=== PATIENT | female | born 1960 | race Caucasian/White ===

== ENCOUNTER 2017-06-01 16:50 | Inpatient (IN) | payer MEDICAID ==
--- NOTE | 2017-06-01 16:50 | EDPHY ---
HPI/HX/ROS/PE/MDM Narrative: CHIEF COMPLAINT: Chest pain HPI: The patient is a 56 y/o female with a history of chronic narcotics use, seizure, and cognitive impairment arriving via EMS for chest pain and hypoxia onset 7:30 AM, 10 hours ago. Around midnight she began experiencing chest pain. Her partner found her lethargic this afternoon and helped her into bed. her partner took her spO2 and found it to be in the 70s. Her partner began giving her oxygen prescribed to her partner. Her chest pain is described as "sharp" and worse with inspiration and movement. REVIEW OF SYSTEMS: Aside from elements discussed in the HPI, a comprehensive 10-point review of systems was reviewed and is negative. PMH: RA, cognitive impairment, chronic narcotics use, seizures, cholecystectomy Prior medical records reviewed including ED Provider Report for 03/20/15 and 03/29 visits SOCIAL HISTORY: Lives in [place], self-employed, medicaid patient PHYSICAL EXAM: General:Patient is sleepy and oriented to year, in no acute distress. ENT:Eyes are normal to inspection. ENT inspection normal. Neck: Normal inspection. Full range of motion. Respiratory:No respiratory distress. Breath sounds normal bilaterally. Cardiovascular: Tachycardic sinus rhythm. Strong peripheral pulses. Normal cap refill. Abdomen:The abdomen is nontender to palpation. There are no peritoneal signs. There are normal bowel sounds. Back: Normal to inspection. No tenderness to palpation. Skin: Normal color. No rash. Warm and dry. Extremities: Normal appearance. Full range of motion. Neuro: Oriented to year. Normal motor function. Normal sensory function. ED Course: EKG was ordered and interpreted by myself. Sinus tachycardia. Please see [employer] system for official reading Study: CT of the chest Indication: Chest pain Results: CT scan of the chest was obtained. The results of the study are: pleural effusion without PE The study was read by the radiologist, Dr. Busby. I viewed the images myself on the PACS system. 1815: I spoke to Dr. Liu, cardiology, regarding this patient. He agree to consult. I will admit to the hospitalist service for admission. 1821: I spoke to the hospitalist service regarding admission for this patient. Dr. Salinas will admit. I spent a total of 45 minutes of critical care time including but not limited to obtaining history, performing a physical exam, ordering interventions and the bedside monitoring of those interventions, collecting and interpreting tests and discussion with consultants but not including time spent performing procedures. - Data Points Imaging Results: Imaging Impressions Chest X-Ray 06/01/17 17:03 Impression: Findings suggesting underlying bronchitis. Possible early infiltrate in the right middle lobe. Chest/Thorax CTA 06/01/17 17:35 Impression: 1. No evidence of thrombopulmonary embolic disease. 2. Possible bronchitis and early pneumonia in the right middle lobe and right lower lobe. Small right pleural effusion. Results called and discussed with Amanuel Anthony MD on 06/01/2017, 18:10. Laboratory Results: Laboratory Results 06/01/17 16:50 06/01/17 16:50 06/01/17 06/01/17 06/01/17 16:50 16:50 16:50 WBC 8.35 10^3/uL 10^3/uL (3.80-9.50) RBC 4.54 10^6/uL 10^6/uL (4.18-5.33) Hgb 14.9 g/dL g/dL (12.6-16.3) Hct 43.8 % % (38.0-47.0) MCV 96.5 fL fL (81.5-99.8) MCH 32.8 pg pg (27.9-34.1) MCHC 34.0 g/dL g/dL (32.4-36.7) RDW 13.2 % % (11.5-15.2) Plt Count 215 10^3/uL 10^3/uL (150-400) MPV 9.9 fL fL (8.7-11.7) Neut % (Auto) 84.9 % H % (39.3-74.2) Lymph % (Auto) 6.2 % L % (15.0-45.0) [place] % (Auto) 8.4 % % (4.5-13.0) Eos % (Auto) 0.0 % L % (0.6-7.6) Baso % (Auto) 0.1 % L % (0.3-1.7) Nucleat RBC Rel Count 0.0 % % (0.0-0.2) Absolute Neuts (auto) 7.09 10^3/uL H 10^3/uL (1.70-6.50) Absolute Lymphs (auto) 0.52 10^3/uL L 10^3/uL (1.00-3.00) Absolute Monos (auto) 0.70 10^3/uL 10^3/uL (0.30-0.80) Absolute Eos (auto) 0.00 10^3/uL L 10^3/uL (0.03-0.40) Absolute Basos (auto) 0.01 10^3/uL L 10^3/uL (0.02-0.10) Absolute Nucleated RBC 0.00 10^3/uL 10^3/uL (0-0.01) Immature Gran % 0.4 % % (0.0-1.1) Immature Gran # 0.03 10^3/uL 10^3/uL (0.00-0.10) D-Dimer 1.38 ug/mLFEU H ug/mLFEU (0.00-0.50) Sodium 138 mEq/L mEq/L (134-144) Potassium 5.0 mEq/L mEq/L (3.5-5.2) Chloride 96 mEq/L L mEq/L (97-110) Carbon Dioxide 33 mEq/l H mEq/l (22-31) Anion Gap 9 mEq/L mEq/L (8-16) BUN 20 mg/dL mg/dL (7-23) Creatinine 0.8 mg/dL mg/dL (0.6-1.0) Estimated GFR > 60 Glucose 146 mg/dL H mg/dL (70-100) Calcium 9.3 mg/dL mg/dL (8.5-10.4) Troponin I 1.570 ng/mL H ng/mL (0.000-0.034) Medications Given: Discontinued Medications Nitroglycerin (Nitro-Bid 2%) 0.5 inch TP EDNOW ONE Stop: 06/01/17 18:24 Last Admin: 06/01/17 18:37 Dose: 0.5 inch General Initial Vital Signs: Initial Vital Signs Temperature (C) 37.1 C 06/01/17 17:00 Heart Rate 116 H 06/01/17 17:00 Respiratory Rate 20 06/01/17 17:00 Blood Pressure 144/91 H 06/01/17 17:00 O2 Sat (%) 82 L 06/01/17 17:00 O2 Delivery Mode Nasal Cannula O2 (L/minute) 4 Allergies/Adverse Reactions: NSAIDS (Non-Steroidal Anti-Inflamma Allergy (Mild, Verified 12/31/14 11:44) GI discomfort amoxicillin Allergy (Verified 03/18/15 11:56) Home Medications: Medication Instructions Recorded Gabapentin 06/01/17 HYDROmorphone 06/01/17 Risperidone 06/01/17 Venlafaxine 25MG (*) 06/01/17 Departure - Departure Disposition: To OP Cath/Surgery Clinical Impression: Non-STEMI (non-ST elevated myocardial infarction) Condition: Fair Report Scribed for: Amanuel Anthony Report Scribed by: Sushma Matamoros Date of Report: 06/01/17 Time of Report: 16:44 Physician Review and Approval Statement: Portions of this note were transcribed by an ED scribe. I personally performed the history, physical exam, and medical decision making; and confirm the accuracy of the information in the transcribed note.
--- NOTE | 2017-06-01 17:02 | CPEKG ---
Heart Rate: 113 RR Interval: 531 P-R Interval: 160 QRSD Interval: 72 QT Interval: 312 QTC Interval: 428 P Rud[place]: 80 QRS Rudolph: 84 T Wave Rudolph: 56 EKG Severity - ABNORMAL ECG - EKG Impression: SINUS TACHYCARDIA EKG Impression: CONSIDER ANTEROSEPTAL INFARCT Electronically Signed By: Amanuel Anthony 02-Jun-2017 21:53:18
[2017-06-01 17:16] LABS: PLATELET COUNT 215 10^3/uL (150-400)
[2017-06-01] MEDS ORDERED: IOPAMIDOL (ISOVUE 370) 100 ML BTL IV ONE (17:37)
--- NOTE | 2017-06-01 18:14 | CPEKG ---
Heart Rate: 106 RR Interval: 566 P-R Interval: 156 QRSD Interval: 74 QT Interval: 336 QTC Interval: 447 P [place]: 85 QRS [place]: 85 T Wave [place]: 60 EKG Severity - ABNORMAL ECG - EKG Impression: SINUS TACHYCARDIA EKG Impression: CONSIDER ANTEROSEPTAL INFARCT Electronically Signed By: Amanuel Anthony 02-Jun-2017 21:53:10
[2017-06-01] MEDS ORDERED: NITROGLYCERIN 2% 1 GM PACKET TP ONE (18:23)
[2017-06-01] MEDS ORDERED: ONDANSETRON 4 MG/2 ML VIAL IVP PRN (18:43)
[2017-06-01] MEDS ORDERED: ONDANSETRON DISINTEGRATING 4 MG TAB PO PRN (18:43)
[2017-06-01] MEDS ORDERED: ACETAMINOPHEN 325 MG TAB PO PRN (18:43)
--- NOTE | 2017-06-01 18:52 | PDGENHP ---
History and Physical - Chief Complaint chest pain - History of Present Illness 56 yo female with h/o tobacco use, chronic pain and continuous opioid dependence presents to ED with CP and SOB. She developed chest pressure yesterday around 5 pm while resting in bed. This was associated with shortness of breath and pleuritic pain. She also had nausea and diaphoresis. She took some Oxycodone, which she takes chronically, but is unable to describe to me where she has chronic pain or how much oxycodone she takes. She denies other drug use. She did not seek care at the onset of her chest pain and says she had chest pain all through the night. Today, a friend came by and became worried about her condition and EMS was called. She is overall a vague historian. En route, she received a full dose Aspirin. In the ED, a CTPA was negative for PE. Her EKG shows Q waves in V1 and V2, with subtle ST elevations in V2. Troponin was elevated at 1.5. Cardiology is consulted and she will proceed directly to the supervisor laboratory. History Information - Allergies/Home Medication List Allergies/Adverse Reactions: NSAIDS (Non-Steroidal Anti-Inflamma Allergy (Mild, Verified 12/31/14 11:44) GI discomfort amoxicillin Allergy (Verified 03/18/15 11:56) Home Medications: Gabapentin [Neurontin 300 MG (*)] 300 mg PO BID 06/01/17 [Last Taken 05/31/17] HYDROmorphone HCL [Dilaudid 2 mg (*)] 2 mg PO 06/01/17 [Last Taken Unknown] Venlafaxine Xr [Effexor Xr] 150 mg PO DAILY 06/01/17 [Last Taken 05/31/17] risperiDONE [RisperDAL] 1 mg PO HS 06/01/17 [Last Taken 05/31/17] I have personally reviewed and updated: family history, medical history, social history, surgical history - Past Medical History Additional medical history: chronic pain secondary to DDD. chronic continuous opioid dependence. anxiety - Surgical History Reports: cholecystectomy, hernia repair Additional surgical history: carpal tunnel release - Family History Positive for: non-pertinent Additional family history: Denies family h/o CAD - Social History Smoking Status: Current every day smoker Alcohol Use: None Drug Use: None Additional social history: Lives independently Review of Systems Review of Systems: ROS: 10pt was reviewed & negative except for what was stated in HPI & below Physical Exam Physical Exam: Temp Pulse Resp BP Pulse Ox 37.1 C 106 H 16 149/100 H 96 06/01/17 17:00 06/01/17 17:57 06/01/17 17:57 06/01/17 17:57 06/01/17 17:57 Constitutional: no apparent distress Eyes: PERRL Ears, Nose, Mouth, Throat: moist mucous membranes Cardiovascular: regular rate and rhythym, no murmur, rub, or gallop Respiratory: no respiratory distress, clear to auscultation Gastrointestinal: normoactive bowel sounds, soft, non-tender abdomen Skin: warm Musculoskeletal: full muscle strength Neurologic: AAOx3 Psychiatric: anxious, poor memory Lab Data & Imaging Review 06/01/17 16:50 06/01/17 16:50 WBC 8.35 10^3/uL (3.80-9.50) 06/01/17 16:50 RBC 4.54 10^6/uL (4.18-5.33) 06/01/17 16:50 Hgb 14.9 g/dL (12.6-16.3) 06/01/17 16:50 Hct 43.8 % (38.0-47.0) 06/01/17 16:50 MCV 96.5 fL (81.5-99.8) 06/01/17 16:50 MCH 32.8 pg (27.9-34.1) 06/01/17 16:50 MCHC 34.0 g/dL (32.4-36.7) 06/01/17 16:50 RDW 13.2 % (11.5-15.2) 06/01/17 16:50 Plt Count 215 10^3/uL (150-400) 06/01/17 16:50 MPV 9.9 fL (8.7-11.7) 06/01/17 16:50 Neut % (Auto) 84.9 % (39.3-74.2) H 06/01/17 16:50 Lymph % (Auto) 6.2 % (15.0-45.0) L 06/01/17 16:50 [place] % (Auto) 8.4 % (4.5-13.0) 06/01/17 16:50 Eos % (Auto) 0.0 % (0.6-7.6) L 06/01/17 16:50 Baso % (Auto) 0.1 % (0.3-1.7) L 06/01/17 16:50 Nucleat RBC Rel Count 0.0 % (0.0-0.2) 06/01/17 16:50 Absolute Neuts (auto) 7.09 10^3/uL (1.70-6.50) H 06/01/17 16:50 Absolute Lymphs (auto) 0.52 10^3/uL (1.00-3.00) L 06/01/17 16:50 Absolute Monos (auto) 0.70 10^3/uL (0.30-0.80) 06/01/17 16:50 Absolute Eos (auto) 0.00 10^3/uL (0.03-0.40) L 06/01/17 16:50 Absolute Basos (auto) 0.01 10^3/uL (0.02-0.10) L 06/01/17 16:50 Absolute Nucleated RBC 0.00 10^3/uL (0-0.01) 06/01/17 16:50 Immature Gran % 0.4 % (0.0-1.1) 06/01/17 16:50 Immature Gran # 0.03 10^3/uL (0.00-0.10) 06/01/17 16:50 D-Dimer 1.38 ug/mLFEU (0.00-0.50) H 06/01/17 16:50 Sodium 138 mEq/L (134-144) 06/01/17 16:50 Potassium 5.0 mEq/L (3.5-5.2) 06/01/17 16:50 Chloride 96 mEq/L (97-110) L 06/01/17 16:50 Carbon Dioxide 33 mEq/l (22-31) H 06/01/17 16:50 Anion Gap 9 mEq/L (8-16) 06/01/17 16:50 BUN 20 mg/dL (7-23) 06/01/17 16:50 Creatinine 0.8 mg/dL (0.6-1.0) 06/01/17 16:50 Estimated GFR > 60 06/01/17 16:50 Glucose 146 mg/dL (70-100) H 06/01/17 16:50 Calcium 9.3 mg/dL (8.5-10.4) 06/01/17 16:50 Troponin I 1.570 ng/mL (0.000-0.034) H 06/01/17 16:50 Visualized and Interpreted Chest x-ray results: Yes Chest X-Ray results: no infiltrate Visualized and Interpreted EKG results: Yes EKG additional interpertation: Q waves V1-V2, subtle ST elevation V2 Assessment & Plan Assessment: Takotsubo cardiomyopathy - Presented with >12 hrs of chest pain and troponin of 1.5. EKG with Q waves in V1,V2 and subtle ST elevation V2, though not significantly changed from prior. Received ASA en route. Went straight to supervisor laboratory, which revealed EF 30% and classic findings for takotsubo, cors clean. She does not appear to be in acute HF. -cont daily ASA -add low dose coreg -check BNP, may benefit from low dose diuretic therapy -echo in am -check lipid status in am -tox screen pending Elevated troponin - likely demand ischemia in setting of takotsubo's cardiomyopathy -trend to peak Chronic pain with continuous opioid dependence - Cont home medication regimen once med rec completed. ?RML infiltrate - no fever, white count or cough -check PCT. If elevated, will treat with Ceftriaxone/Azithro Full code DVT PPLX - low risk, SCD's Dispo - admit to inpt, anticipate >48 hrs hospitalization for ongoing workup and management of chest pain and elevated troponin
[2017-06-01] MEDS ORDERED: METOPROLOL TARTRATE 25 MG TAB PO SCH (19:00)
[2017-06-01] MEDS ORDERED: ATORVASTATIN CALCIUM 40 MG TAB PO SCH ×2 (19:00→21:00)
[2017-06-01] MEDS ORDERED: LIDOCAINE 1% 300 MG/30 ML SDV ONE (19:05)
[2017-06-01] MEDS ORDERED: fentaNYL 100 MCG/2 ML INJ ONE (19:06)
[2017-06-01] MEDS ORDERED: IOPAMIDOL (ISOVUE-370) 150 ML BTL IV ONE (19:06)
[2017-06-01] MEDS ORDERED: MIDAZOLAM 2 MG/2 ML VIAL ONE (19:06)
[2017-06-01] MEDS ORDERED: NITROGLYCERIN 0.4 MG BTL SL PRN (20:04)
[2017-06-01] MEDS ORDERED: ATROPINE SULFATE 1 MG/10 ML SYR IVP PRN (20:04)
--- NOTE | 2017-06-01 20:35 | GCON ---
[f rep st] CONSULTATION CARDIOLOGY CONSULTATION DATE OF CONSULTATION: 06/01/2017 INDICATION FOR CONSULTATION: Ongoing 8/10 substernal chest pressure with positive troponin with normal ECG and negative CTA for pulmonary emboli. HISTORY OF PRESENT ILLNESS: The patient is a pleasant 56-year-old female who denies any past medical history, who presents to the emergency department today with a history of over 18 hours of substernal chest discomfort. She states she awoke around midnight last night with 8-1/2 out of 10 substernal squeezing chest tightness and pressure that was nonradiating associated with shortness of breath and nausea. She states these symptoms have waxed and waned all day but have become fairly constant, prompting her to seek medical attention at [facility] Emergency Department. Upon presentation, she was found to be tachycardic at 106 beats per minute. Her D-dimer was elevated. She did undergo a CTA of the chest for possible pulmonary emboli. There was no evidence of thrombo-pulmonary emboli. There were findings suggestive of possible bronchitis versus early pneumonia in the right middle lobe and lower lobe, and there was a small right pleural effusion. Currently, at the time of my exam, she is in mild to moderate distress. She is unable to get comfortable. She is describing ongoing 8/10 substernal chest pain. She is hemodynamically stable and responds appropriately to questions, although occasionally she responds with incorrect answers, particularly when asked her age. PAST MEDICAL HISTORY: None. MEDICATIONS ON ADMISSION: Include: 1. Hydromorphone 4 mg 1 tablet daily as needed. 2. Gabapentin 300 mg p.o. t.i.d. 3. Risperdal 4 mg at bedtime. 4. Venlafaxine 150 mg 2 tablets p.o. at bedtime. ALLERGIES TO MEDICATIONS: NSAIDs and amoxicillin. FAMILY HISTORY: No family history of premature coronary artery disease. SOCIAL HISTORY: She is single. She has recently moved from the [facility] to live with a friend. She has 2 children ages 14 and 18. She is a smoker. She has smoked a half pack a day since her early teenage years. She denies any history of illicit drug use or alcohol use. PHYSICAL EXAMINATION: VITAL SIGNS: Blood pressure 149/100, respiratory rate of 16, heart rate of 106, oxygen saturation 96% on 4 L nasal cannula. GENERAL: She is awake, alert, oriented, appropriate, in no apparent distress. NECK: There is no evidence of JVD or carotid bruit. LUNGS: Clear to auscultation bilaterally. ABDOMEN: Soft, nontender, nondistended. She has a 2+ right femoral pulse. EXTREMITIES: There is no evidence of cyanosis, clubbing or edema. DATA: Lab results demonstrate white blood cell count of 8.35, hemoglobin 14.9, hematocrit 43.8, platelets of 215. D-dimer was positive at 1.38. Sodium 138, potassium 5.0, chloride 96, bicarb 33, BUN 20, creatinine 0.8. Troponin 1.570. Glucose 146. ECG demonstrates sinus tachycardia. IMPRESSION: Zba-PA-[id number]-elevation myocardial infarction with ongoing 8/10 substernal chest pain. I have recommend diagnostic left heart catheterization. Patient is agreeable to pursue. Risks and benefits have been discussed in detail. She is agreeable to pursue. No contraindication to dual antiplatelet therapy. PLAN: Patient will be taken directly to the senior cytogenetics laboratory director. Further workup pending from there. 40 minutes spent coordinating care /[id number]/MODL MTDD
[2017-06-01] MEDS: CARVEDILOL 3.125 MG TAB PO SCH (20:40)
--- NOTE | 2017-06-01 21:40 | CPIP ---
[f rep st] INVASIVE CARDIAC PROCEDURE DATE OF PROCEDURE: 06/01/2017 REPORT TITLE: Cardiology Procedure Note INDICATION FOR PROCEDURE: Concern for uam-DI-bjpvxlw elevation myocardial infarction with a 56-year- old female with ongoing substernal chest pressure, with positive troponin of 1.58. PROCEDURE: After informed consent was obtained, the patient was brought to the cardiac catheterizati on lab, where she was prepped and draped in a sterile fashion. Using 1% lidocaine, the right groin w as anesthetized with 1% lidocaine. Using the modified Seldinger technique, a 6-Swiss catheter was p laced in the right common femoral artery without complications. A JL4 catheter was used to take imag es of the left coronary anatomy in multiple projections. The JL4 catheter was exchanged over a guide wire for a JR4 catheter. JR4 catheter was used to cannulate the right coronary artery. Images of th e right coronary anatomy were obtained in multiple projections. JR4 catheter was exchanged over a gu idewire for angled pigtail catheter. Angled pigtail catheter was used to cross the aortic valve. Le ft ventriculogram was performed. LVEDP was assessed. Aortic valve gradient was assessed on pull-aquiles k. Angled pigtail catheter was exchanged over a guidewire. Angiography of the right common femoral artery site demonstrates appropriate placement below the inguinal ligament. Appropriate for closure device. FINDINGS: 1. Left main normal size and caliber. It bifurcates into the left anterior descending and left circ umflex coronary arteries. There is no evidence of coronary disease within the left main. 2. The left anterior descending artery gives rise to a moderate-sized first diagonal branch. The LA D is free of coronary artery disease. 3. Left circumflex artery is a dominant vessel. There is some tortuosity to the first obtuse margin al branch. There is no evidence of coronary disease within the circumflex system or the obtuse yeny nal branch. 4. Right coronary artery is a small, nondominant vessel with no evidence of coronary disease. HEMODYNAMICS: LVEF 30% to 35% with classic appearance of basal segment hyperkinesis. The remainder of the ventricle, except of the apical cap, is hypodynamic, consistent with a takotsubo or stress-ind uced cardiomyopathy. LVEDP is elevated at 23 mmHg. Aortic valve gradient: none. CONCLUSION: 1. Normal coronary arteries. 2. Stress-induced/takotsubo-induced cardiomyopathy with left ventricular ejection fraction of 30% to 35%. PLAN: 1. Patient will be admitted to the patient care unit. 2. Will begin to initiate heart failure therapy with low-dose Coreg at 3.125 mg p.o. b.i.d. /[id number]/MODL
[2017-06-01] MEDS ORDERED: risperiDONE 1 MG TAB PO SCH (23:15)
[2017-06-02 04:08] LABS: PLATELET COUNT 195 10^3/uL (150-400)
[2017-06-02] MEDS: CARVEDILOL 3.125 MG TAB PO SCH ×2 (07:38→17:03)
[2017-06-02] MEDS: GABAPENTIN 300 MG CAP PO SCH ×2 (07:39→20:01)
[2017-06-02] MEDS: ASPIRIN EC 81 MG TAB PO SCH (07:39)
--- NOTE | 2017-06-02 08:55 | ECHO ---
[email or web address] [address] Main: [phone] Fax: Transthoracic Echocardiogram Name: AMADA HUERTA MR#: [id number] Study Date: 06/02/2017 Study Time: 08:04 AM Date of : 1960 Age: 56 year(s) Height: 167.6 cm (66 in.) Weight: 56.7 kg (125 lb.) BSA: 1.64 m2 Gender: Female Examination: Echo Indication: Shortness of breath, Chest Pain Image Quality: Contrast: Requested by: Fanta Salinas BP: 143 mmHg/99 mmHg Heart Rate: Rhythm: Normal sinus rhythm Indication: Shortness of breath, Chest Pain Procedure Staff Mechanical Assembly Technician: Dontrell Pederson Reading Physician: Yuri Chowdhury Requesting Provider: Conclusions: Normal size left ventricle. Moderately to severely reduced systolic function. EF is 26 %. The left venticular wall motion is consistent with Takotsubo cardiomyopathy. There is mid inferoseptal, apical to mid anterolateral hypokinesis. The mitral valve is normal in appearance. Trivial mitral valve regurgitation. Aortic valve is not well visualized. There is no aortic valve regurgitation. No aortic valve stenosis is present. No old studies for comparison. Measurements: Chambers Valvular Assessment AV/MV Valvular Assessment TV/PV Normal Normal Normal Name Value Range Name Value Range Name Value Range Ao Chrystal (MM): 2.6 cm (2.2 cm-3.7 AV Vmax: 0.96 m/s (1 m/s-1.7 TR Vmax: 1.59 mm/s ( - ) cm) m/s) TR PGmax: 10 mmHg ( - ) IVSd (2D): 0.6 cm (0.6 cm-1.1 AV maxP mmHg ( - ) syst. PAP: 15 mmHg ( - ) cm) LVOT Vmax: 0.74 m/s (0.7 m/s-1.1 PV Vmax: 0.68 m/s (0.6 m/s-0.9 LVDd (2D): 4.0 cm (3.9 cm-5.3 m/s) m/s) cm) MV E Vmax: 0.83 m/s ( - ) PV PGmax: 2 mmHg ( - ) LVDs (2D): 3.1 cm (2.1 cm-4 MV A Vmax: 0.69 m/s ( - ) cm) MV E/A: 1.20 ( - ) LVPWd (2D): 0.7 cm ( - ) LVEF (BP): 26 % (>=55 %) Continued Measurements: Chambers Valvular Assessment AV/MV Valvular Assessment TV/PV Patient: AMADA HUERTA Study Date: 06/02/2017 Page 1 of 2 08:04 AM Name Value Name Value Name Value LADs Lon.1 cm MV E/E' Septal: 10.70 CVP (est.): 5 mmHg LA Area: 12.4 cm2 MV E/E' Lateral: 11.60 LA Volume: 24 ml LA Volume Index: 14.6 ml/m2 Findings: Left Ventricle: Normal size left ventricle. Moderately to severely reduced systolic function. EF is 26 %. The left venticular wall motion is consistent with Takotsubo cardiomyopathy. There is mid inferoseptal, apical to mid anterolateral hypokinesis.Diastolic dysfunction is present. . Right Ventricle: Normal size right ventricle. Normal RV function. Left Atrium: The left atrium is normal in size. Right Atrium: The right atrium is normal in size. Mitral Valve: The mitral valve is normal in appearance. Trivial mitral valve regurgitation. Aortic Valve: Aortic valve is not well visualized. There is no aortic valve regurgitation. No aortic valve stenosis is present. Tricuspid Valve: The tricuspid valve is normal in appearance and function. Pulmonic Valve: The pulmonic valve is normal in appearance and function. Aorta: The aorta is normal. Pericardium: No pericardial effusion. (No Signature Object) Patient: AMADA HUERTA Study Date: 06/02/2017 Page 2 of 2 08:04 AM [id number]
[2017-06-02] MEDS ORDERED: VENLAFAXINE XR 150 MG CAP PO SCH (09:00)
--- NOTE | 2017-06-02 09:46 | SOAPPROG ---
[facility] Progress Note Assessment/Plan: 1. Takotsubo CM - Pt presented with symptoms of chest pain. Her troponin was mildly elevated. She was taken to the cardiac catheterization laboratory on 06/01/17 and found to have a takotsubo CM with no significant CAD. Pt was started on coreg. Echocardiogram on 06/02 demonstrates an EF of 25%. She denies symptoms of CHF and appears euvolemic at this time. --> Continue coreg --> Start lisinopril 5 mg daily. --> Consider repeat limited echocardigram in the am. --> Would hold Risperidone 2. Hyperlipidemia - Pts LDL is 50 with diet and exercise 3. HTN - BP is borderline. Will start lisinopril as noted above. Subjective: + respirophasic chest pain No orthopnea or PND limited ambulation Objective: Vital Signs Temp Pulse Resp BP Pulse Ox 36.7 C 94 18 143/99 H 90 L 06/02/17 08:00 06/02/17 08:00 06/02/17 08:00 06/02/17 08:00 06/02/17 08:00 Laboratory Results 06/02/17 03:50 06/02/17 03:50 06/01/17 06/02/17 06/03/17 05:59 05:59 05:59 Intake Total 650 Output Total 1850 Balance -1200 Physical Exam - Physical Exam General Appearance: other (sleepy but responsive to commands) Respiratory: lungs clear Cardiac/Chest: regular rate, rhythm, systolic murmur Abdomen: normal bowel sounds, non-tender, soft Extremities: other (2 DP B), No pedal edema Neuro/Psych: other (sleepy) ICD10 Worksheet Patient Problems: Problems Problem Status Onset Abdominal pain Acute Non-STEMI (non-ST elevated myocardial infarction) Acute
[2017-06-02] MEDS ORDERED: LORazepam 1 MG TAB PO PRN (11:50)
[2017-06-02] MEDS: HYDROmorphONE/DILAUDID 4 MG TAB PO PRN (13:14)
--- NOTE | 2017-06-02 13:57 | ASMTCMCOM ---
CM Note CM Note Notes: Patient admitted with chest pain, found to have Takotsubo CM. Cardiology has seen and is adjusting medications. She will likely discharge home tomorrow. Case Management discharge plan: home independent Date Signed: 06/02/2017 01:56 PM Electronically Signed By:Monica Florence RN
--- NOTE | 2017-06-02 14:44 | HOSPPROG ---
Hospitalist Progress Note Assessment/Plan: 56 yo with no pmh significant for heart disease is admitted with chest pain and elevated troponin. She had angiogram which revealed normal coronaries but has significantly decreased ejection fraction and needs additional midnight stay for ongoing evaluation and medical treatment for acute systolic CHF CHF, acute systolic, likely Takasubo's but patient without clear stressful event. Has been on meds that may contribute including ritalin and effexor * Continue to monitor as inpatient and adjust medications * will dc ritalin * decrease effexor to 150 mg daily * discussed with Dr. Chowdhury # Chronic pain with chronic narcotic dependence. Reviewed her meds and will continue her lorazepam and dilauded. fu with her pain doctor after dc # depression/ on effexor, may not be good for acute heart issues, will decrease dose to 150 daily. Subjective: pt new to me and chart reviewed. Continues to have chest pain Objective: Vital Signs Temp Pulse Resp BP Pulse Ox 37.0 C 94 18 142/94 H 91 L 06/02/17 12:00 06/02/17 12:00 06/02/17 12:00 06/02/17 12:00 06/02/17 12:00 Laboratory Results 06/02/17 03:50 06/02/17 03:50 06/01/17 06/02/17 06/03/17 05:59 05:59 05:59 Intake Total 650 Output Total 1850 Balance -1200 - Physical Exam Constitutional: chronically ill appearing, uncomfortable Eyes: PERRL, EOMI Ears, Nose, Mouth, Throat: moist mucous membranes Cardiovascular: regular rate and rhythym, no murmur, rub, or gallop Respiratory: no respiratory distress, no rales or rhonchi Gastrointestinal: normoactive bowel sounds, soft, non-tender abdomen Genitourinary: no bladder fullness Skin: warm, normal color Musculoskeletal: no joint effusions Neurologic: AAOx3, No facial droop Psychiatric: interacting appropriately, not anxious ICD10 Worksheet Patient Problems: Problems Problem Status Onset Abdominal pain Acute Non-STEMI (non-ST elevated myocardial infarction) Acute
--- NOTE | 2017-06-02 15:04 | PDMN ---
Medical Necessity Medical necessity: Pt meets IP criteria per MD; est los >2 mn for eval/tx of acute systolic CHF likely r/t Takotsubo's cardiomyopathy w/chest pain & elevated trop; admit for further workup & med management; per progress note & order 06/02/17
[2017-06-02] MEDS: LIDOCAINE 5% 1 EA PATCH TD SCH (19:58)
[2017-06-02] MEDS ORDERED: PATCH REMOVAL 1 EA PATCH TD SCH (21:00)
[2017-06-02] MEDS ORDERED: risperiDONE 2 MG TAB PO SCH (21:00)
[2017-06-03 08:58] VITALS: RESP 18
[2017-06-03] MEDS ORDERED: LISINOPRIL 5 MG TAB PO SCH (09:00)
[2017-06-03] MEDS ORDERED: VENLAFAXINE XR 150 MG CAP PO SCH (09:00)
[2017-06-03] MEDS ORDERED: VENLAFAXINE HCL 75 MG TAB PO SCH (09:00)
[2017-06-03] MEDS: ASPIRIN EC 81 MG TAB PO SCH (09:04)
[2017-06-03] MEDS: GABAPENTIN 300 MG CAP PO SCH (09:04)
[2017-06-03] MEDS: CARVEDILOL 3.125 MG TAB PO SCH (09:04)
[2017-06-03] MEDS: LIDOCAINE 5% 1 EA PATCH TD SCH (09:04)
[2017-06-03] MEDS: HYDROmorphONE/DILAUDID 4 MG TAB PO PRN (09:12)
[2017-06-03] MEDS ORDERED: HYDROmorphONE/DILAUDID 4 MG TAB PO PRN (11:28)
[2017-06-03] MEDS ORDERED: AZITHROMYCIN 250 MG TAB PO SCH (11:30)
[2017-06-03 12:33] VITALS: BP 97/56; PULSE 97; TEMP 98; O2SAT 93
--- NOTE | 2017-06-03 13:09 | PDCARPN ---
Cardiology Progress Note Chief Complaint: Chest Pain Assessment/Plan: Assessment: 06/03/17 12:54 Takotsubo Cardiomyopathy: EF 25%. Will plan to get outpatient Echo in one week at [facility]. Home on ASA, Coreg, and Lisinopril. Follow up in 10 days 06/20/17 at 10:00 with Siomara Vazquez TIMBER FRAMER HELPER at [facility]. Continues to complain of chest pain until she gets her pain medication. Plan: Discharge today. Echo and follow up as above. Subjective: The chest pain went away after the pain medication this morning. Reviewed/Discussed With: hospitalist, multidisciplinary team Time Spent With Patient: 15 minutes Objective: Vital Signs (8 Hrs) Temp Pulse Resp BP Pulse Ox 06/03/17 12:00 36.6 C 97 18 97/56 L 93 06/03/17 08:00 36.6 C 92 18 114/67 95 Intake/Output (24 Hrs) 06/02/17 06/03/17 06/04/17 05:59 05:59 05:59 Intake Total 650 1350 Output Total 1850 1200 Balance -1200 150 Intake: Oral (ml) 650 1350 Output: Urine (ml) 1850 1200 Bedpan 650 Toilet 1200 1200 Other: Weight 56.699 kg Intake Quantity Yes Sufficient Number of Stools Toilet 1 Result Diagrams: 06/02/17 03:50 06/03/17 08:50 Cardiac Labs: Cardiac Lab Results (72 Hrs) 06/02/17 06/01/17 03:50 20:00 Troponin I 1.850 H Cancelled - Physical Exam Constitutional: no apparent distress Cardiovascular: regular rate and rhythm, no murmurs, no rubs, no gallops Peripheral Pulses: 2+: dorsalis-pedis (R), dorsalis-pedis (L) Respiratory: clear to auscultate bilat, no crackles, no wheezes Skin: no rashes, warm, no edema Neurologic: AAOx3 Psychiatric: cooperative, interactive ICD10 Worksheet Patient Problems: Problems Problem Status Onset Abdominal pain Acute Non-STEMI (non-ST elevated myocardial infarction) Acute
--- NOTE | 2017-06-03 13:12 | GDS ---
[f rep st] DISCHARGE SUMMARY DIAGNOSES: 1. Probable takotsubo cardiomyopathy with diminished EF at 26%, negative angiogram for coronary sushant ry flow-limiting disease. 2. Possible bronchitis, treated with Zithromax. 3. Depression, anxiety, followed by Psychiatry. 4. Chronic back pain with chronic narcotic dependency. PROCEDURES DONE: 1. Chest and thoracic angiogram negative for pulmonary embolus, possible right middle lobe pneumonia versus bronchitis. 2. Left heart catheterization, negative for obstructive coronary artery disease, diminished EF. 3. Echocardiogram showing decreased ejection fraction of 26%, left ventricular wall motion consisten t with takotsubo cardiomyopathy. CONSULTATIONS: Cardiology, Dr. Yuri Chowdhury. HOSPITAL COURSE: The patient is a 56-year-old who is admitted with chest pain. Chest and thoracic a ngiogram was negative, and she underwent a left heart catheterization given elevated troponins. This was negative for coronary artery disease, but she did have a cardiomyopathy consistent with takotsub o cardiomyopathy and has been treated medically for this. She continues to have intermittent chest p ain that is responding to her usual pain medication she takes for her back pain. I will also treat h er for possible bronchitis with Zithromax at the time of discharge. It is unclear as to the etiology of her takotsubo cardiomyopathy. She denies any recent stresses. However, she is on Ritalin, as we ll as Effexor, which can have some heart effects. I told her to discontinue the Ritalin, and I decre ased her Effexor from 300 to 150 mg daily. She will follow up with her psychiatrist to discuss other options for depression and possibly continue her wean. DISCHARGE MEDICATIONS: Please see discharge medication form. FOLLOWUP: Followup will be with her psychiatrist. She will also follow up with [facility] with a n echocardiogram as scheduled, and she should schedule a followup appointment with her primary care maribell amor for hospital followup and to let her know of the issue she has been dealing with. Total time spent with patient on the day of discharge and coordination of care is 35 minutes. /[id number]/MODL
--- NOTE | 2017-06-03 14:10 | ASDISCHSUM ---
Discharge Information Plan Status:Home with No Needs Medically Cleared to Leave:06/02/2017 Discharge Date:06/03/2017 01:25 PM CM D/C Disposition:Home, Routine, Self-Care ADT D/C Disposition:Home, Routine, Self-Care Projected Discharge Date:06/03/2017 01:25 PM Transportation at D/C:Family Discharge Delay Reason: Follow-Up Date:06/03/2017 01:25 PM Discharge Slot: Final Diagnosis: Placement Information Patient Contact Information Contact Name:MITZINATHANBRE Relationship:Friend Address: Work Phone: City: [facility] Phone: [facility]/Zip Code: Email: Financial Information Financial Class: Primary Plan Desc:[employer] [place] IP Primary Plan Number:[id number] Secondary Plan Desc: Secondary Plan Number: Assessment Information [facility] CM Progress Note CM Note CM Note Notes: Patient admitted with chest pain, found to have Takotsubo CM. Cardiology has seen and is adjusting medications. She will likely discharge home tomorrow. Case Management discharge plan: home independent Date Signed: 06/02/2017 01:56 PM Electronically Signed By:Monica Florence RN LACE RONY Length of stay for Answers: 1 day current admission Acuity / Level of Care Answers: Was the patient admitted to hospital via the emergency department? Yes: Comorbidities - select Answers: Cerebrovascular disease all that apply Emergency dept visits in Answers: 0 last 6 months Score: 5 Date Signed: 06/03/2017 11:43 AM Electronically Signed By:Dee Dee Araujo RN Intervention Information Intervention Type:*Incorrect Registration Date of Service:06/02/2017 11:04 AM Patient Type:Inpatient Staff Member:HAKEEM Krishnan Courtney Hours: Discipline: Severity: Comment:
--- NOTE | 2017-06-09 09:01 | PQFORM ---
PHYSICIAN QUERY FORM Needs Your Response This query form is being sent to you to assure this patient record is coded properly. Please respond to the question below: AUDIO/VISUAL OPERATOR QUESTION: Dr. Miller, On your 06/02 progress note and medical necessity note, you document the patient has acute systolic CHF. It is also documented by the policy writer sales, Dr. Liu, that the patient was initiated on heart failure therapy with low-dose Coreg at 3.125 mg. Can acute systolic CHF be added to the diagnoses on the discharge summary? _x____ yes no other Thank you, IRENE Estrada HIM Coding INSTRUCTIONS FOR RESPONSE: Answer question by clicking on the "Edit Document" button. Move cursor to area below the stars. When complete, hit "Save." Click on the "Sign" button, then click "Sign" again. Type in your PIN and hit "Enter." MTDD
== END 2017-06-03 13:25 | disposition home or self-care (01) | DRG 286 ==
LOC: EDUNIT# → OBSVTOIN 18:43 → F2W 20:25
PROVIDERS: ADMIT Hospitalist; ATTEND Internal Medicine
DX: I51.81 Takotsubo syndrome (principal); I50.21 Acute systolic (congestive) heart failure; J40 Bronchitis, not specified as acute or chronic; F32.9 Major depressive disorder, single episode, unspecified; F41.9 Anxiety disorder, unspecified; G89.29 Other chronic pain; M54.9 Dorsalgia, unspecified; F11.20 Opioid dependence, uncomplicated; G40.909 Epilepsy, unspecified, not intractable, without status epilepticus; R41.89 Other symptoms and signs involving cognitive functions and awareness; M06.9 Rheumatoid arthritis, unspecified; E78.5 Hyperlipidemia, unspecified
CPT/HCPCS: 80305; C1760; J2250; J3010; Q9967

== ENCOUNTER 2017-06-26 23:10 | Observation (INO) | payer MEDICAID ==
[2017-06-26] MEDS ORDERED: NS 1,000 ML IV ONE (23:17)
--- NOTE | 2017-06-26 23:19 | CPEKG ---
Heart Rate: 77 RR Interval: 779 P-R Interval: 164 QRSD Interval: 80 QT Interval: 464 QTC Interval: 526 P [place]: 81 QRS [place]: 89 T Wave [place]: 176 EKG Severity - ABNORMAL ECG - EKG Impression: SINUS RHYTHM EKG Impression: ABNORMAL T, CONSIDER ISCHEMIA, ANT-LAT LEADS EKG Impression: PROLONGED QT INTERVAL Electronically Signed By: Tim Houston 27-Jun-2017 06:38:04
--- NOTE | 2017-06-26 23:22 | EDPHY ---
H & P Smoking Status: Current every day smoker Time Seen by Provider: 06/26/17 23:14 HPI/ROS: CHIEF COMPLAINT: Chest pain, shortness of breath, weakness HISTORY OF PRESENT ILLNESS: 56-year-old female presents to the emergency department by ambulance with intermittent chest pain and feeling weak. The patient was admitted to the hospital with takotsubo cardiomyopathy on 2016. She was discharged 2 days later. She states since she has been discharged, she has had intermittent chest pain. Today she felt "awful ". She feels extremely weak. She has pain in the left side of her chest. She feels like she is having difficulty breathing. No fevers or chills. No cough. She states that they have been changing her lisinopril dosage. No fevers or chills. No reported trauma. REVIEW OF SYSTEMS: Constitutional: No fever, no chills. Eyes: No double or blurry vision. ENT: No sore throat. Respiratory: Shortness of breath as above. No cough. Cardiac: chest pain. Gastrointestinal: No abdominal pain, vomiting or diarrhea. Genitourinary: No dysuria. Musculoskeletal: No neck or back pain. Skin: No rashes. Neurological: No headache. (Jeanne Laws) Past Medical/Surgical History: Hypertension, takotsubo cardiomyopathy with ejection fracture of 26% June 01 2017, depression, anxiety, chronic pain with narcotic dependency (Eusebia Jeanne M) Social History: Single and lives in [place] ([place]) Physical Exam: General Appearance: Alert, no distress. Blood pressure 92/56, heart rate 82, 93 % on room air Eyes: Pupils equal and round. Extraocular motions are all intact. ENT: Mouth: Mucous membranes moist. Respiratory: No wheezing, rhonchi, or rales, lungs are clear to auscultation. Cardiovascular: Regular rate and rhythm. Gastrointestinal: Abdomen is soft and nontender, no masses, no rebound or guarding, bowel sounds normal. Neurological: Alert and oriented x 3, cranial nerves II through XII grossly intact Skin: Warm and dry, no rashes. Musculoskeletal: Nontender to palpate along the cervical, thoracic or lumbar spine. Neck is supple. Extremities: Full range of motion and no peripheral edema. Psychiatric: Patient is oriented X 3, there is no agitation. (Jeanne Laws) Constitutional: Initial Vital Signs Temperature (C) 36.5 C 06/26/17 23:17 Heart Rate 78 06/26/17 23:17 Respiratory Rate 16 06/26/17 23:17 Blood Pressure 96/52 L 06/26/17 23:17 O2 Sat (%) 97 06/26/17 23:17 O2 Delivery Mode Room Air Allergies/Adverse Reactions: NSAIDS (Non-Steroidal Anti-Inflamma Allergy (Mild, Verified 06/26/17 23:19) GI discomfort amoxicillin Allergy (Verified 06/26/17 23:19) Home Medications: Medication Instructions Recorded Gabapentin [Neurontin 300 MG (*)] 300 mg PO TID 06/01/17 HYDROmorphone HCL [Dilaudid 4 mg 4 mg PO Q8 MDD 4mg 06/02/17 (*)] LORazepam [Ativan (*)] 1 mg PO DAILY PRN 06/02/17 oxyCODONE IR [Oxycodone Ir (*)] 30 mg PO Q8H 06/02/17 risperiDONE [Risperidone] 4 mg PO HS 06/02/17 Aspirin EC [Aspirin EC 81 mg (*)] 81 mg PO DAILY tab 06/03/17 Escitalopram Oxalate [Lexapro] 20 mg PO DAILY 06/27/17 Medical Decision Making ED Course/Re-evaluation: Patient was given full-strength aspirin. Patient typically takes baby aspirin daily. She does have an NSAID allergy because she states ibuprofen "tears her stomach" but states that she is fine with aspirin. The case was discussed with Dr. Tim Houston, secondary supervising his physician who also evaluate the patient. EKG was obtained which revealed ischemic changes V1 through V6. This was compared with previous EKG from 06/01/2017. See interpretation by Dr. Tim Houston in trace [facility]. Echocardiogram has been ordered. Care was turned over to Dr. Houston who will arrange admission to hospitalist and talk with machine coil assembler. (Jeanne Laws) EKG interpretation by me on record in [place] system. Impression time of EKG 231: This EKG shows sinus rhythm rate of 77 there are ischemic looking T- waves in V1 V2 V3 V4 V5 V6. Additionally there is a T-wave inversion in aVL and lead 1 laterally. This is changed from her previous EKG dated 06/01/2017. This is an abnormal ischemic EKG. 0114AM: I spoke with Dr. BENOIT who is on-call for Cardiology. They plan to see this patient in the morning. Did re-evaluate this patient this time she is resting comfortably no acute distress infact she is sleeping. Will plan on repeating EKG as he had significant T-wave abnormalities on her initial EKG upon arrival. Patient be admitted to the hospitalist service Dr. Joya. Echo shows base of the heart akinesis, the mitral valve shows mod to severe regurg. This is changed from her previous echo where she had trace regurg. 0126AM: Repeat EKG: Repeat EKG, time of EKG 1:24 a.m., sinus rate of 76 T-wave abnormality seen again V1 V2 V3 V4 V5 V6. 1 in aVL. Unchanged from previous EKG. (Tim Houston) Differential Diagnosis: Chest pain including but not limited to myocardial ischemia, pulmonary embolus, chest wall pain, pleural inflammation and pulmonary infectious causes. (Jeanne Laws) - Data Points Laboratory Results: Laboratory Results 06/26/17 23:30 06/26/17 23:30 Medications Given: Discontinued Medications Aspirin (Aspirin) 325 mg PO EDNOW ONE Stop: 06/26/17 23:25 Last Admin: 06/26/17 23:30 Dose: 325 mg Benzocaine (Hurricaine [place]) 1 each MM ONCALL ONE Stop: 06/27/17 11:16 Last Admin: 06/27/17 12:38 Dose: Not Given Hydromorphone HCl (Dilaudid) 0.5 - 1 mg IVP Q2HRS PRN PRN Reason: Pain, Severe Unable to Take PO Stop: 07/07/17 04:18 Last Admin: 06/27/17 08:48 Dose: 0.5 mg Hydromorphone HCl (Dilaudid) 4 mg PO Q8 KENNETH Stop: 07/07/17 13:59 Last Admin: 06/27/17 16:44 Dose: Not Given Sodium Chloride (Ns) 1,000 mls @ 0 mls/hr IV ONCE ONE PRN Reason: Wide Open Stop: 06/26/17 23:18 Last Admin: 06/26/17 23:29 Dose: 1,000 mls Sodium Chloride (Ns) 1,000 mls @ 0 mls/hr IV ONCE ONE PRN Reason: Wide Open Stop: 06/27/17 01:07 Last Admin: 06/27/17 01:14 Dose: 1,000 mls Sodium Chloride (Ns) 1,000 mls @ 75 mls/hr IV CONT KENNETH Stop: 12/24/17 01:44 Last Admin: 06/27/17 04:15 Dose: 1,000 mls Sodium Chloride (Ns) 1,000 mls @ 0 mls/hr IV ONCALL ONE PRN Reason: TKO Stop: 06/27/17 09:53 Last Admin: 06/27/17 12:39 Dose: Not Given Sodium Chloride (Ns) 500 mls @ 0 mls/hr IV ONCALL ONE PRN Reason: TKO Stop: 06/27/17 11:16 Last Admin: 06/27/17 12:39 Dose: Not Given Lorazepam (Ativan) 0.5 - 1 mg PO Q8HRS PRN PRN Reason: Anxiety, Able to Take PO Stop: 12/24/17 01:30 Last Admin: 06/27/17 10:58 Dose: 0.5 mg Oxycodone HCl (Oxycodone Ir) 5 - 10 mg PO Q3HRS PRN PRN Reason: Pain, Severe Able to Take PO Stop: 07/07/17 01:30 Last Admin: 06/27/17 13:48 Dose: 5 mg Oxycodone HCl (Oxycodone Ir) 30 mg PO Q8H KENNETH Stop: 07/07/17 11:14 Last Admin: 06/27/17 16:45 Dose: Not Given Departure - Departure Disposition: [facility] Inpatient Acute Clinical Impression: Abnormal EKG Chest pain Qualifiers: Chest pain type: unspecified Qualified Code(s): R07.9 - Chest pain, unspecified Fatigue Qualifiers: Fatigue type: unspecified Qualified Code(s): R53.83 - Other fatigue Condition: Fair
[2017-06-26] MEDS ORDERED: ASPIRIN 325 MG TAB PO ONE (23:24)
[2017-06-26 23:41] LABS: PLATELET COUNT 236 10^3/uL (150-400)
[2017-06-26 23:53] LABS: CREATINE KINASE 46 IU/L (0-156); INR 1.07 (0.83-1.16); PROTIME(PATIENT) 14.1 SEC (12.0-15.0)
[2017-06-27] MEDS ORDERED: NS 1,000 ML IV ONE ×2 (01:06→09:52)
--- NOTE | 2017-06-27 01:26 | CPEKG ---
Heart Rate: 76 RR Interval: 789 P-R Interval: 164 QRSD Interval: 80 QT Interval: 448 QTC Interval: 504 P [place]: 80 QRS [place]: 87 T Wave [place]: 154 EKG Severity - ABNORMAL ECG - EKG Impression: SINUS RHYTHM EKG Impression: ABNORMAL T, CONSIDER ISCHEMIA, ANT-LAT LEADS EKG Impression: BORDERLINE PROLONGED QT INTERVAL Electronically Signed By: Tim Houston 27-Jun-2017 06:38:04
[2017-06-27] MEDS ORDERED: ACETAMINOPHEN 325 MG TAB PO PRN (01:31)
[2017-06-27] MEDS ORDERED: oxyCODONE IR 5 MG TAB PO PRN (01:31)
[2017-06-27] MEDS ORDERED: LORazepam 0.5 MG TAB PO PRN (01:31)
[2017-06-27] MEDS ORDERED: ONDANSETRON 4 MG/2 ML VIAL IVP PRN ×2 (01:31→12:03)
[2017-06-27] MEDS ORDERED: NS 1,000 ML IV SCH (01:45)
[2017-06-27 04:07] LABS: PLATELET COUNT 218 10^3/uL (150-400)
[2017-06-27 04:08] LABS: CREATINE KINASE 42 IU/L (0-156)
[2017-06-27] MEDS: HYDROmorphONE/DILAUDID 1 MG/ML INJ IVP PRN ×2 (05:29→08:48)
--- NOTE | 2017-06-27 07:36 | GHP ---
[f rep st] HISTORY AND PHYSICAL DATE OF ADMISSION: 06/27/2017 SOURCE: The patient provides history and appears reliable. Her EMR was also reviewed and case discussed with the ED provider. CHIEF COMPLAINT: Chest pain. HISTORY OF PRESENT ILLNESS: This is a pleasant 56-year-old female with a past medical history significant for Takotsubo cardiomyopathy with a hospitalization on 06/01/2017, hypertension, anxiety, depression, chronic pain on chronic narcotics, who presents to the emergency department with complaints of worsening chest pain. The patient reports that since she was discharged she has had intermittent left-sided chest tightness and aching. The patient reports pain is intermittent. It is not associated with increased exertion. The patient denies any current or recurrent stressors or recent illnesses. The patient does report that she has been feeling increasingly weak and fatigued. She has had some associated increased shortness of breath from her baseline, in addition to the chest pain. The patient also monitoring her blood pressures at home and noted that they have been on the lower side. She has been continuing to take her lisinopril 5 mg and Coreg 3.125 mg p.o. b.i.d. During her last hospital stay, the patient did have an echocardiogram that was significant for an EF of 26%, with trivial mitral valve regurgitation. The patient was also treated at the time of discharge for bronchitis with azithromycin pack. Etiology of the Takotsubo cardiomyopathy was still unclear. The patient had been on Ritalin and Effexor, which were discontinued and decreased, respectively. The patient denies any increasing lower extremity edema, no orthopnea, no PND. REVIEW OF SYMPTOMS: GENERAL: The patient was reporting some chills today. No fevers or sweats. SKIN: No rashes or sores. ENT: The patient denies any rhinorrhea, sore throat. CV: See HPI. RESPIRATORY: The patient with shortness of breath, as above. Chronic cough at baseline. GI: Positive for nausea, no vomiting. The patient also reports some left-sided abdominal pain without any distention. No diarrhea. No melena or hematochezia. : No dysuria or hematuria. MUSCULOSKELETAL: The patient reports diffuse joint pain , particularly in her back, as well as muscle aching, which is chronic at baseline. PSYCH: The patient reports a history of anxiety and depression. She denies any SI or HI, states these are fairly well controlled. Remainder ROS negative except as noted above. ALLERGIES: Nonsteroidal anti-inflammatory drugs and amoxicillin. MEDICATIONS: Home medications as per EMR. Risperidone 4 mg p.o. q.h.s., OxyIR 30 mg p.o. t.i.d., Effexor 150 mg p.o. h.s., Mucinex 1 tab p.o. b.i.d. p.r.n., lisinopril 5 mg p.o. daily, lorazepam 1 mg p.o. daily to p.r.n., Dilaudid 2 to 4 mg p.o. daily p.r.n., Gabapentin 300 mg p.o. b.i.d., Coreg 3.125 mg b.i.d. with meals, azithromycin completed, aspirin 81 mg p.o. daily. PAST MEDICAL HISTORY: Significant for Takotsubo cardiomyopathy. Last EF on 08/2016 was 26% with trivial MR. History of hepatitis C, hypertension, depression, anxiety, chronic pain with chronic narcotic dependency for degenerative disk disease. PAST SURGICAL HISTORY: Significant for cholecystectomy and with hernia repair. Cardiac cath, which was negative for any occlusive disease. FAMILY HISTORY: Negative for coronary artery disease, or other diseases. SOCIAL HISTORY: The patient lives with a friend currently, who she also requests to act as proxy, if needed. The patient reports occasional tobacco abuse. She has been trying to quit. She denies any chronic alcohol use and she has used marijuana 1 time recently. She denies any use of any other illicit drugs. CODE STATUS: Full. Again, the patient desires her friend to act as proxy if needed. PHYSICAL EXAMINATION: VITALS: Upon arrival to the emergency department on , blood pressure 96/52, heart rate 78, respiratory rate 16, O2 sat 97% on room air with a temperature of 36.5. Current available vitals: Blood pressure 107/67, systolic blood pressure at bedside is 90 systolic, heart rate 71 respiratory rate 16, O2 sat 95% on room air with temperature 36.6. GENERAL: No acute distress. The patient is lying quietly in bed. She appears older than stated age. HEAD: Normocephalic, atraumatic. EYES: Extraocular muscles grossly intact. Pupils equal, round, slightly decreased reactivity bilaterally , but symmetric. No scleral icterus. No conjunctival injection. ENT: Mucous membranes appear moist. No oropharyngeal erythema or exudate. NECK: Supple. Trachea midline. CV: Slightly distant heart sounds. Slightly bradycardic in the 60s, without any appreciated murmurs, rubs, or gallops. There is occasional extra beat. RESPIRATORY: Lungs are clear to auscultation bilaterally. No wheezes, rales, or rhonchi. ABDOMEN: Positive bowel sounds, soft, nontender on palpation with no guarding or masses appreciated. : No Lomas in place. No suprapubic tenderness to palpation. EXTREMITIES: The patient without any clubbing, cyanosis, or edema appreciated. The patient with 1+ pedal pulses. MUSCULOSKELETAL: The patient moves all extremities, generalized weakness. Lies quietly in bed. NEURO: Cranial nerves 2-12 are grossly nonfocal. No facial drooping. The patient is awake, alert and oriented x4. PSYCH: The patient without any apparent anxiety. Affect appropriate. answering questions also appropriate. LABORATORY DATA: WBC 5.64, H and H 13.2 and 38.5, MCV of 93.0, platelet count 236, non bands. PT 14.1, INR 1.07, PTT 25.1. Sodium is 140, potassium 3.7, chloride 104, CO2 is 27, BUN 12, creatinine 0.7. GFR greater than 60, glucose 104, calcium 9.4, magnesium 2.0, total bili 0.5, ALT 27, AST 21, alk phos 70. CK 46, CK MB 1.49. Troponin 0.018, repeat is 0.013. BTNP 903. Troponin 6.4, albumin 3.8, lipase 41. tsh is pending. EKG on arrival to the emergency department, significant for normal sinus rhythm with T-wave inversions in the anterolateral leads in V1 through V6 and aVL. No acute ST elevations. Repeat EKG on the floor shows persistence of T-wave inversions in the anterolateral leads and aVL. No acute ST elevations. Sinus rhythm, compared to EKGs from previous. EKG last available is NSR T-wave inversion only noted in V1 and aVL remainder in the lateral leads. No acute ST depressions on that EKG. Chest x-ray, image report reviewed myself, showing bronchitis, airway disease, no definite pneumonia, 2-view when stable. ASSESSMENT/PLAN: A pleasant 56-year-old female with history of Takotsubo cardiomyopathy who is admitted now with chest pain. 1. Chest pain is likely related to patient's cardiomyopathy versus severe mitral regurgitation as a STAT echocardiogram was obtained showing ejection fraction of 66% with hyperdynamic changes and diminished . Cardiology is consulted from the emergency department. There are no further recommendations or changes at this time. We will evaluate the patient later this morning. Blood pressure is also slightly below normal. The patient received IV fluids in the emergency department. Will plan to continue supplementation while awaiting cardiology recommendations. Hold her Coreg and lisinopril for now. 2. Takotsubo cardiomyopathy with improved ejection fraction since June 01, but new severe mitral regurgitation where it was trivial previously noted. Plan as above. 3. Benign essential hypertension. Blood pressures are below normal, again holding her lisinopril and Coreg. 4. Depression/anxiety, holding sertraline. 5. Tobacco abuse. The patient is trying to work on cessation. 6. Chronic pain. The patient will have Dilaudid available p.r.n. for her acute chest pain, which we will also add to cover. Resume her gabapentin and oxycodone once the patient's cardiac evaluation is completed and diet advanced. 7. Fluids, electrolytes, nutrition: IV fluids to continue overnight. Electrolyte replacement if needed. Diet is n.p.o., pending cardiology recommendations. 8. Prophylaxis. Sequential compression devices. Hold anticoagulation, pending further recommendations and for longer hospital stay. Otherwise, encourage mobilization as tolerated. 9. Code status is full. The patient desires her friend to act as proxy as needed. 10. Disposition: The patient has been admitted to observation from PCU floor pending further recommendations from cardiology service. /[id number]/MODL MTDD
[2017-06-27 10:49] VITALS: BP 117/72; PULSE 80; RESP 16; TEMP 98; O2SAT 96
--- NOTE | 2017-06-27 10:49 | ECHO ---
[email or web address] [address] [address] Main: [phone] Fax: Transthoracic Echocardiogram Name: AMADA HUERTA MR#: [id number] Study Date: 06/27/2017 Study Time: 12:20 AM Date of : 1960 Age: 56 year(s) Height: 167.6 cm (66 in.) Weight: 54.43 kg (120 lb.) BSA: 1.61 m2 Gender: Female Examination: Echo Indication: Chest pain/ischemic EKG/hx of takotsubo cardiomyopathy Image Quality: Contrast: Requested by: Jeanne Laws BP: 87 mmHg/54 mmHg Heart Rate: Rhythm: Indication: Chest pain/ischemic EKG/hx of takotsubo cardiomyopathy Procedure Staff Cable Armorer Operator: Maribell Jackman Reading Physician: Gaurav Clifton Requesting Provider: Conclusions: Hyperdynamic left ventricular systolic function with an ejection fraction above 70%. There is near cavity obliteration of the apical and mid portions of the left ventricle. There are no regional wall motion abnormalities noted. Normal LV, RV, LA and RA dimensions. The anterior leaflet of the mitral valve appears to be thickened especially on the ventricular side of the anterior leaflet. This is associated with moderate to severe central mitral regurgitation. There is no indication of prolapse. A vegetation cannot be excluded. The remainder of the valvular structures appear to be normal. There is mild tricuspid regurgitation. Normal estimated RVSP. The patient had a prior study in early May of 2017 that demonstrated a lesser degree of mitral regurgitation however similar thickening of the anterior leaflet of the mitral valve was noted. Measurements: Chambers Valvular Assessment AV/MV Valvular Assessment TV/PV Normal Normal Normal Name Value Range Name Value Range Name Value Range IVSd (2D): 0.8 cm (0.6 cm-1.1 AV Vmax: 1.43 m/s (1 m/s-1.7 TR Vmax: 2.67 mm/s ( - ) cm) m/s) TR PGmax: 29 mmHg ( - ) LVDd (2D): 4.1 cm (3.9 cm-5.3 AV maxP mmHg ( - ) syst. PAP: 34 mmHg ( - ) cm) AV meanP mmHg ( - ) LVDs (2D): 2.1 cm (2.1 cm-4 LVOT Vmax: 0.88 m/s (0.7 m/s-1.1 cm) m/s) LVPWd (2D): 0.7 cm ( - ) DOMO (Vmax): 1.2 cm2 ( - ) LVOTd 1.6 cm 1.6 cm mm DOMO (VTI): 1.5 cm ( - ) LVEF (2D): 80 (>=54 %) MV maxP mmHg ( - ) MV meanP mmHg ( - ) MVA (Vmax): 1.6 m/s ( - ) Continued Measurements: Chambers Valvular Assessment AV/MV Valvular Assessment TV/PV Patient: AMADA HUERTA Study Date: 06/27/2017 Page 1 of 2 12:20 AM Name Value Name Value Name Value LADs Lon.0 cm MV Annulus: 3.0 cm CVP (est.): 5 mmHg LA Area: 15.7 cm2 MV VTI: 24.20 cm MR ERO: 0.390 cm2 MR PISA radius: 9 mm MR Reg. Volume: 48 ml MR Reg. Fraction: 28 % Findings: Left Ventricle: Normal size left ventricle. Global hypercontractility of the left ventricle. EF is 80 %. Right Ventricle: Normal size right ventricle. Left Atrium: The left atrium is normal in size. Right Atrium: The right atrium is normal in size. Mitral Valve: Moderate to severe mitral regurgitation. Aortic Valve: The aortic valve is normal in appearance and function. Tricuspid Valve: The tricuspid valve is normal in appearance and function. Mild tricuspid regurgitation is present. The pulmonary artery pressure is normal. Pulmonic Valve: The pulmonic valve is normal in appearance and function. Aorta: The aorta is normal. Pericardium: No pericardial effusion. Exam Comments: (No Signature Object) Patient: AMADA HUERTA Study Date: 06/27/2017 Page 2 of 2 12:20 AM [id number]
[2017-06-27] MEDS ORDERED: LORazepam 1 MG TAB PO PRN (11:06)
[2017-06-27] MEDS ORDERED: NS 500 ML IV ONE (11:15)
[2017-06-27] MEDS ORDERED: BENZOCAINE UNIT DOSE SPRAY HURRICAINE MM ONE (11:15)
--- NOTE | 2017-06-27 11:22 | SOAPPROG ---
[facility] Progress Note Assessment/Plan: Assessment: 56-year-old female with a history of a recently diagnosed takotsubo cardiomyopathy on June 01 of this year. She presents now with intermittent left-sided atypical chest discomfort. Her pain is resolved now. Cardiac enzymes are negative. Her echocardiogram which was done today indicates that her ejection fraction has normalized. She has no pericardial effusion. Her ECG indicates evolutionary changes from her recent Takotsubo's syndrome. Interestingly, she does have significant mitral regurgitation. Additionally the valve itself appears to be thickened. She has no stigmata of endocarditis although has had some chills. Overall, there really is no evidence of a significant threatening underlying etiology to her atypical chest pain. I am, however, concerned about her mitral valve regurgitation. I think her symptoms of fatigue are likely related to the recent addition of medications in the form of lisinopril and Coreg. Plan: 1. I have ordered an ESR, CRP and blood cultures. 2. I would like to perform a MAIA. 3. I think her lisinopril and Coreg should be discontinued as these are likely contributing substantially to her symptoms of fatigue. 4. Provided her MAIA his unremarkable I think she can be discharged home later today. 06/27/17 11:22 Subjective: The patient was seen and examined. Her chart was reviewed. I personally reviewed her previous echocardiogram from earlier this month and her current echocardiogram. She presents to the emergency department with complaints of "I do not feel well." She notes that since her hospitalization on June 01 she really has not recovered fully. She continues to have symptoms of fatigue and overall exhaustion. She denies significant dyspnea. She does note intermittent central to left-sided chest discomfort. This is described as a sharp pain. The pain is worse with deep inspiration. There is no positional component. She denies exertional provocation. She has had low-grade chills without objective fever. Because of these symptoms she was admitted to the hospital. She has been monitored overnight. She remains in sinus rhythm. Her troponins have been negative. An echocardiogram was done which indicates that her ejection fraction has now normalized. Interestingly, she has moderate to severe mitral regurgitation on her present study which was not there on her prior study earlier this month. Objective: Vital Signs Temp Pulse Resp BP Pulse Ox 36.7 C 80 16 117/72 96 06/27/17 10:47 06/27/17 10:47 06/27/17 10:47 06/27/17 10:47 06/27/17 10:47 Laboratory Results 06/27/17 03:45 06/27/17 03:45 06/26/17 06/27/17 06/28/17 05:59 05:59 05:59 Intake Total 1700 Balance 1700 PT 14.1 SEC (12.0-15.0) 06/26/17 23:30 INR 1.07 (0.83-1.16) 06/26/17 23:30 Laboratory Tests 06/26/17 06/27/17 23:30 03:45 Troponin I 0.018 0.013 NT-Pro-B Natriuret Pep 903 H Her electrocardiogram demonstrates normal sinus rhythm with anterolateral T- wave inversions. Physical Exam - Physical Exam General Appearance: WD/WN, no apparent distress Neck: non-tender, full range of motion Respiratory: chest non-tender, lungs clear, No respiratory distress, No accessory muscle use, No decreased breath sounds, No crackles Cardiac/Chest: regular rate, rhythm, No edema, No gallop, No JVD Peripheral Pulses: 2+: carotid (R), carotid (L) Abdomen: normal bowel sounds, non-tender, soft Pelvic Exam: deferred Rectal: deferred Neuro/Psych: alert, oriented x 3 ICD10 Worksheet Patient Problems: Problems Problem Status Onset Abnormal EKG Acute Chest pain Acute Fatigue Acute Abdominal pain Acute Non-STEMI (non-ST elevated myocardial infarction) Acute
--- NOTE | 2017-06-27 11:27 | ASMTCMCOM ---
CM Note CM Note Notes: 06/27/2017 Case Management Note Reviewed chart. Pt admitted for chest pain and abnormal EKG. There are no case management d/c needs identified d/t pt age and activity levels prior to admission. There are no PT or OT evals ordered at this time. Case Management d/c poc: anticipating home independent with follow up as directed. Case Management available if needs change. Date Signed: 06/27/2017 11:27 AM Electronically Signed By:Dee Dee Araujo RN
[2017-06-27] MEDS ORDERED: PROPOFOL 200 MG/20 ML VIAL ONE (11:53)
--- NOTE | 2017-06-27 12:01 | PDHPUP ---
History & Physical Update H&P update statement: This history and physical update is based on an assessment of the patient which was completed after admission or registration (within 24 hours), but prior to the surgery/procedure. H&P update: H&P reviewed & patient examined, no change in patient's condition since H&P completed
--- NOTE | 2017-06-27 12:02 | PDANEPAE ---
ANE Past Medical History - Cardiovascular History Hx Hypertension: Yes Hx Coronary Artery / Peripheral Vascular Disease: Yes - Pulmonary History Hx Asthma/Reactive Airway Disease: Yes Hx Oxygen in Use at Home: No Hx Sleep Apnea: No - Endocrine History Hx Diabetes: No - Chronic Pain History Chronic Pain: Yes ANE Review of Systems Review of Systems: ANE Patient History - Allergies Allergies/Adverse Reactions: NSAIDS (Non-Steroidal Anti-Inflamma Allergy (Mild, Verified 06/26/17 23:19) GI discomfort amoxicillin Allergy (Verified 06/26/17 23:19) - Home Medications Home Medications: Gabapentin [Neurontin 300 MG (*)] 300 mg PO TID 06/01/17 [Last Taken 06/26/17] HYDROmorphone HCL [Dilaudid 4 mg (*)] 4 mg PO Q8 MDD 4mg 06/02/17 [Last Taken Unknown] LORazepam [Ativan (*)] 1 mg PO DAILY PRN 06/02/17 [Last Taken 06/26/17] oxyCODONE IR [Oxycodone Ir (*)] 30 mg PO Q8H 06/02/17 [Last Taken 05/31/17] risperiDONE [Risperidone] 4 mg PO HS 06/02/17 [Last Taken 06/26/17] Escitalopram Oxalate [Lexapro] 20 mg PO DAILY 06/27/17 [Last Taken 06/26/17] Lisinopril [Zestril 5 mg (*)] 2.5 mg PO DAILY 06/27/17 [Last Taken 06/26/17] - Anes Hx Anes Hx: no prior problems - Smoking Hx Smoking Status: Current every day smoker ANE Labs/Vital Signs - Labs Result Diagrams: 06/27/17 03:45 06/27/17 03:45 - Vital Signs Blood Pressure: 117/72 Heart Rate: 80 Respiratory Rate: 16 O2 Sat (%): 96 Height: 167.64 cm Weight: 56 kg ANE Physical Exam - Airway Neck exam: FROM Mallampati Score: Class 1 Mouth exam: normal dental/mouth exam - Pulmonary Pulmonary: no respiratory distress, no rales or rhonchi, clear to auscultation - Cardiovascular Cardiovascular: regular rate and rhythym - ASA Status ASA Status: II ANE Anesthesia Plan Anesthesia Plan: GA with mask
[2017-06-27] MEDS ORDERED: fentaNYL 100 MCG/2 ML INJ IVP PRN (12:03)
[2017-06-27] MEDS ORDERED: NALOXONE HCL 0.4 MG/ML INJ IVP PRN (12:03)
--- NOTE | 2017-06-27 13:47 | GDS ---
[f rep st] DISCHARGE SUMMARY DISCHARGE DIAGNOSES: 1. Atypical chest pain. 2. Recently diagnosed takotsubo cardiomyopathy, status post transesophageal echocardiogram today kit wing improved heart function. 3. Moderate to severe mitral regurgitation, mild tricuspid regurgitation. 4. Chronic pain syndrome with chronic narcotic dependency. 5. Degenerative disk disease. CONSULTANTS: Dr. Les Clifton, [facility]. HOSPITAL COURSE BY PROBLEM: 1. Chest pain: The patient presented to the hospital with chest pain after recently being diagnosed with takotsubo cardiomyopathy. She underwent a cardiac cath on 06/01/2017. 2. The patient has been monitored on telemetry. She has had 2 negative troponins. She has been see n by Dr. Clifton, who performed transesophageal echo this afternoon. Dr. Clifton has confirmed that her heart function is better, but she does have some mitral regurgitation that will need to be followed u p. PHYSICAL EXAM: VITAL SIGNS: On day of discharge, blood pressure 117/72, pulse of 80, respiratory ra te 16, O2 saturation 96% on room air. Temperature afebrile. GENERAL: No acute distress. HEART: S1 , S2. LUNGS: Clear. ABDOMEN: Soft. EXTREMITIES: No edema. DISCHARGE MEDICATIONS: Please refer to discharge medication reconciliation in [facility] for full deta ils. Below is a preliminary list. Home medications that have been discontinued: Coreg and lisinopril. All other home medications were continued at her usual home dosages. DISCHARGE INSTRUCTIONS: The patient will be discharged from the hospital, where she should be follow ed up by her primary care provider, as well as [facility], for further followup of her valvular he art disease. /[id number]/MODL
[2017-06-27] MEDS ORDERED: HYDROmorphONE/DILAUDID 4 MG TAB PO SCH (14:00)
--- NOTE | 2017-06-27 14:27 | POSTANESTH ---
Post Anesthetic Evaluation Cardiovascular Status: Normal, Stable, Similar to Pre-Op Cond Respiratory Status: Normal, Stable, Similar to Pre-op Cond. Level of Consciousness/Mental Status: Can Participate in Eval, Alert and Oriented Pain Control: Adequate, Prn Tx Ordered Nausea/Vomiting Control: Adequate, Prn Tx Ordered Complications Possibly Related to Anesthesia: None Noted
[2017-06-27] MEDS ORDERED: GABAPENTIN 300 MG CAP PO SCH (16:00)
--- NOTE | 2017-06-27 16:47 | ASDISCHSUM ---
Discharge Information Plan Status:Home with No Needs Medically Cleared to Leave:06/26/2017 Discharge Date:06/27/2017 03:30 PM CM D/C Disposition:Home, Routine, Self-Care ADT D/C Disposition:Home, Routine, Self-Care Projected Discharge Date:06/27/2017 12:00 AM Transportation at D/C:Family Discharge Delay Reason: Follow-Up Date:06/27/2017 12:00 AM Discharge Slot: Final Diagnosis: Placement Information Patient Contact Information Contact Name:MITZIMARTITA Relationship:Friend Address: Work Phone: City: [facility] Phone: [facility]/XM Radio Code: Email: Financial Information Financial Class: Primary Plan Desc:[employer] Primary Plan Number:[id number] Secondary Plan Desc: Secondary Plan Number: Assessment Information [facility] CM Progress Note CM Note CM Note Notes: 06/27/2017 Case Management Note Reviewed chart. Pt admitted for chest pain and abnormal EKG. There are no case management d/c needs identified d/t pt age and activity levels prior to admission. There are no PT or OT evals ordered at this time. Case Management d/c poc: anticipating home independent with follow up as directed. Case Management available if needs change. Date Signed: 06/27/2017 11:27 AM Electronically Signed By:Dee Dee Araujo RN Intervention Information Intervention Type:*Incorrect Registration Date of Service:06/27/2017 03:06 PM Patient Type:Inpatient Staff Member:HAKEEM Krishnan Courtney Hours: Discipline: Severity: Comment:
[2017-06-27] MEDS ORDERED: CARVEDILOL 3.125 MG TAB PO SCH (18:00)
[2017-06-27] MEDS ORDERED: RISPERIDONE 4 MG PO SCH (21:00)
[2017-06-27] MEDS ORDERED: risperiDONE 2 MG TAB PO SCH (21:00)
[2017-06-28] MEDS ORDERED: NON-FORMULARY NEW DRUG (Escitalopram Oxalate [Lexapro] 20 MG) PO SCH (09:00)
[2017-06-28] MEDS ORDERED: ASPIRIN EC 81 MG TAB PO SCH (09:00)
[2017-06-28] MEDS ORDERED: ESCITALOPRAM OXALATE 10 MG TAB PO SCH (09:00)
[2017-06-28] MEDS ORDERED: LISINOPRIL 5 MG TAB PO SCH (09:00)
== END 2017-06-27 15:30 | disposition home or self-care (01) ==
LOC: EDUNIT# → INTOOBSV 06-27 01:17 → F2W 06-27 01:39
PROVIDERS: ADMIT Family Medicine; ATTEND Family Medicine
PROC: B245ZZ4 Ultrasonography of Left Heart, Transesophageal (ICD-10-PCS; principal; 2017-06-26)
DX: R07.89 Other chest pain (principal); I51.81 Takotsubo syndrome; G89.4 Chronic pain syndrome; F11.20 Opioid dependence, uncomplicated; F17.210 Nicotine dependence, cigarettes, uncomplicated; F41.8 Other specified anxiety disorders
CPT/HCPCS: 71010; 93005; 93306; G0378; J1170; J2704

== ENCOUNTER 2017-08-10 00:29 | Observation (INO) | payer MEDICAID ==
[2017-08-10] MEDS ORDERED: ONDANSETRON 4 MG/2 ML VIAL IVP ONE (00:33)
[2017-08-10] MEDS ORDERED: NS 1,000 ML IV ONE ×2 (00:33→02:14)
--- NOTE | 2017-08-10 00:37 | EDPHY ---
H & P HPI/ROS: HPI CHIEF COMPLAINT: Narcotic, alcohol, benzo overdose HISTORY OF PRESENT ILLNESS: Patient is a 56-year-old female significant for tacos supra cardiomyopathy EF 26%, chronic pain syndrome on chronic opioids, benzos, and had alcohol this evening. Presents emergency room after a friend called 911 as she was excessively sleepy. EMS gave her 0.5 mg IV Narcan EN route this caused her to have nausea vomiting. Upon arrival to the emergency room she is actively vomiting. She admits to taking her opioids tonight as well as benzos as well as having some alcohol. She still somewhat sleepy. She denies this being a suicide attempt or ingestion. Denies trauma. Past Medical History: Chronic pain syndrome on chronic opioids, history of takotsubo cardiomyopathy, severe MR, chronic pain, degenerative disc disease, last EF 26%, benzodiazepine dependency Past Surgical History: No recent surgery. Social History: Alcohol this evening. On daily opioids on daily benzos Family History: Noncontributory ROS REVIEW OF SYSTEMS: A comprehensive 10 point review of systems is otherwise negative aside from elements mentioned in the history of present illness. Exam Constitutional appears well nontoxic no acute distress, actively vomiting, triage nursing summary reviewed, vital signs reviewed, awake/alert. Eyes normal conjunctivae and sclera, EOMI, PERRLA. HENT normal inspection, atraumatic, moist mucus membranes, no epistaxis, neck supple/ no meningismus, no raccoon eyes. Respiratory clear to auscultation bilaterally, normal breath sounds, no respiratory distress, no wheezing. Cardiovascular rate normal, regular rhythm, no murmur, no edema, distal pulses normal. Gastrointestinal actively vomiting soft, non-tender, no rebound, no guarding, normal bowel sounds, no distension, no pulsatile mass. Genitourinary no CVA tenderness. Musculoskeletal no midline vertebral tenderness, full range of motion, no calf swelling, no tenderness of extremities, no meningismus, good pulses, neurovascularly intact. Skin pink, warm, & dry, no rash, skin atraumatic. Neurologic awake, alert and oriented x 3, AAOx3, moves all 4 extremities equally, motor intact, sensory intact, CN II-XII intact, normal cerebellar, normal vision, normal speech. Psychiatric normal mood/affect. Heme/Lymph/Immune no lymphadenopathy. Differential Diagnosis: Includes but is not limited to in a particular order mixture of polysubstance abuse including benzo, opioid, alcohol leading to sedation. Medical Decision Making: Plan for this patient should be placed on full laborer hide house, IV establishment IV fluid bolus, IV Zofran for nausea, monitor for worsening of condition monitor for re-sedation. Patient actively vomiting given the Narcan by EMS. Will hold on giving further doses of Narcan as the patient does not appear exceedingly lethargic and she is protecting her airway. Re-evaluation: 0112AM: Patient re-evaluated this time. She is now mentating completely appropriately and answers my questions. She denies overdosing on her narcotics or benzos. She is now fully awake and answers my questions appropriately. She states that she was sleeping on the couch. She thinks her roommate became concerned how sleepy she was not called 911. She denies any chest pain or shortness of breath. She is resting comfortably at this time. EKG interpretation by me on record in [employer] system. Impression time of EKG 1:10 a.m. sinus tachycardia rate of 108 no acute ischemic change or signs of cardiac arrhythmia. Reason for EKG overdose 0358: Patient is positive for benzos, opioids, marijuana. I did re-evaluate her at 3:50 a.m. she is eager to be discharged from the emergency room. She is mentating appropriately. She answers my questions appropriately. She denies any focal complaints specifically denies chest pain or shortness of breath. Denies lightheadedness. Denies dizziness. She would like to be discharged. Now that she is awake and alert ambulates well answers my questions appropriately is not sedated were sleepy I will allow her to be discharged in emergency room. She denies ingestion of drugs to harm herself. She states she takes chronic opioids and benzos for pain control. I do recommend she monitor herself closely for how much she takes. As tonight I feel that she may have taken too much. She understands this. 0415AM: Patient ambulated throughout the emergency room and desatted down to 72 %. I have ordered a chest x-ray. The original plan was for her to go home however when removed from oxygen at rest in the bed she desats down to 80%. Most likely has questionable aspiration from vomiting versus aspiration pneumonitis versus hypoventilation from opioids. Will plan on doing a chest x-ray admitted to the hospitalist service for polysubstance overdose and hypoxia. With 2 L nasal cannula her oxygen saturation is appropriate. 95%. 0424AM: Spoke with Dr. Joya who agrees to admit the patient. Reason for admission, overdose, now stable, but with hypoxia, down to 72% on road test. Chest x-ray one view reviewed by myself. No significant infiltrate appreciated. D-dimer pending. CT angiogram of the chest shows no evidence of PE. Bilateral atelectasis present. Source: Patient, EMS - Medical/Surgical History Hx Asthma: Yes Hx Chronic Respiratory Disease: No Hx Diabetes: No Hx Cardiac Disease: No Hx Renal Disease: No Hx Cirrhosis: No Hx Alcoholism: No Hx HIV/AIDS: No Hx Splenectomy or Spleen Trauma: No Other PMH: MIGRAINES, OSTEO AND RHEUMATOID ARTHRITIS, DEGENERATIVE JOINT DISEASE , DEGENERATIVE DISC DISEASE, CERVICAL BULGING DISC, COGNITIVE IMPAIRMENT, SEIZURES, PTSD - Social History Smoking Status: Current every day smoker Constitutional: Initial Vital Signs Temperature (C) 36.7 C 08/10/17 00:40 Heart Rate 127 H 08/10/17 00:40 Respiratory Rate 22 H 08/10/17 00:40 Blood Pressure 180/89 H 08/10/17 00:40 O2 Sat (%) 91 L 08/10/17 00:40 O2 Delivery Mode Nasal Cannula O2 (L/minute) 2 Allergies/Adverse Reactions: NSAIDS (Non-Steroidal Anti-Inflamma Allergy (Mild, Verified 08/10/17 00:34) GI discomfort amoxicillin Allergy (Verified 08/10/17 00:34) Home Medications: Medication Instructions Recorded Gabapentin [Neurontin 300 MG (*)] 300 mg PO TID 06/01/17 LORazepam [Ativan (*)] 1 mg PO DAILY PRN 06/02/17 risperiDONE [Risperidone] 4 mg PO HS 06/02/17 Aspirin EC [Aspirin EC 81 mg (*)] 81 mg PO DAILY tab 06/03/17 Escitalopram Oxalate [Lexapro] 20 mg PO DAILY 06/27/17 Carvedilol [Coreg (*)] 3.125 mg PO DAILY 08/10/17 Lisinopril [Zestril 5 mg (*)] 5 mg PO DAILY 08/10/17 Methylphenidate HCl [Ritalin 5mg 5 mg PO BID@08,14 08/10/17 (*)] oxyCODONE IR [Oxycodone Ir (*)] 15 mg PO Q8H PRN #1 tab 08/11/17 Medical Decision Making - Data Points Laboratory Results: Laboratory Results 08/10/17 00:35 08/10/17 00:35 Medications Given: Discontinued Medications Aspirin Buffered (Aspirin Ec) 81 mg PO DAILY KENNETH Stop: 02/07/18 08:59 Last Admin: 08/11/17 09:02 Dose: 81 mg Carvedilol (Coreg) 3.125 mg PO DAILY KENNETH Stop: 02/07/18 08:59 Last Admin: 08/11/17 09:02 Dose: 3.125 mg Enoxaparin Sodium (Lovenox) 40 mg SC DAILY KENNETH Stop: 02/06/18 08:59 Last Admin: 08/11/17 09:02 Dose: 40 mg Escitalopram Oxalate (Lexapro) 20 mg PO DAILY KENNETH Stop: 02/07/18 08:59 Last Admin: 08/11/17 09:03 Dose: 20 mg Gabapentin (Neurontin) 300 mg PO TID KENNETH Stop: 02/06/18 15:59 Last Admin: 08/11/17 09:02 Dose: 300 mg Hydromorphone HCl (Dilaudid) 8 mg PO HS KENNETH Stop: 02/06/18 20:59 Last Admin: 08/10/17 20:57 Dose: 8 mg Sodium Chloride (Ns) 1,000 mls @ 0 mls/hr IV EDNOW ONE; Wide Open PRN Reason: Protocol Stop: 08/10/17 00:34 Last Admin: 08/10/17 00:47 Dose: 1,000 mls Sodium Chloride (Ns) 1,000 mls @ 0 mls/hr IV ONCE ONE PRN Reason: Wide Open Stop: 08/10/17 02:15 Last Admin: 08/10/17 02:16 Dose: 1,000 mls Sodium Chloride (Ns) 1,000 mls @ 100 mls/hr IV CONT KENNETH Stop: 02/06/18 05:44 Last Admin: 08/10/17 06:36 Dose: 1,000 mls Lisinopril (Zestril) 5 mg PO DAILY KENNETH Stop: 02/07/18 08:59 Last Admin: 08/11/17 09:02 Dose: 5 mg Lorazepam (Ativan) 1 mg PO DAILY PRN PRN Reason: Anxiety Stop: 02/06/18 11:53 Last Admin: 08/11/17 00:02 Dose: 1 mg Methylphenidate HCl (Ritalin) 5 mg PO BID@08,14 [facility] Stop: 02/06/18 13:59 Last Admin: 08/11/17 09:02 Dose: 5 mg Nicotine (Nicoderm Cq) 21 mg TD DAILY KENNETH Stop: 02/06/18 08:59 Last Admin: 08/11/17 09:03 Dose: 21 mg Ondansetron HCl (Zofran) 4 mg IVP EDNOW ONE Stop: 08/10/17 00:34 Last Admin: 08/10/17 00:47 Dose: 4 mg Oxycodone HCl (Oxycodone Ir) 30 mg PO Q8H [facility] Stop: 08/20/17 11:59 Last Admin: 08/10/17 12:51 Dose: Not Given Oxycodone HCl (Oxycodone Ir) 10 - 20 mg PO Q8H [facility] Stop: 08/20/17 12:14 Last Admin: 08/10/17 14:23 Dose: 10 mg Oxycodone HCl (Oxycodone Ir) 10 - 20 mg PO Q8H PRN PRN Reason: SEVERE PAIN Stop: 08/20/17 14:59 Last Admin: 08/11/17 06:35 Dose: 15 mg Pneumococcal Polyvalent Vaccine (Pneumovax 23) 0.5 ml IM .ONCE ONE Stop: 08/10/17 11:06 Last Admin: 08/10/17 11:29 Dose: 0.5 ml Risperidone (Risperdal) 4 mg PO HS KENNETH Stop: 02/06/18 20:59 Last Admin: 08/10/17 20:57 Dose: 4 mg Departure - Departure Disposition: [facility] Clinical Impression: Hypoxia Narcotic overdose Qualifiers: Encounter type: initial encounter Injury intent: accidental or unintentional Qualified Code(s): T40.601A - Poisoning by unspecified narcotics, accidental ( unintentional), initial encounter Benzodiazepine overdose Qualifiers: Encounter type: initial encounter Injury intent: accidental or unintentional Qualified Code(s): T42.4X1A - Poisoning by benzodiazepines, accidental ( unintentional), initial encounter Condition: Good
[2017-08-10 00:53] LABS: PLATELET COUNT 292 10^3/uL (150-400)
--- NOTE | 2017-08-10 01:12 | CPEKG ---
Heart Rate: 108 RR Interval: 556 P-R Interval: 176 QRSD Interval: 70 QT Interval: 352 QTC Interval: 472 P Sabine: 74 QRS Sabine: 83 T Wave Sabine: 40 EKG Severity - OTHERWISE NORMAL ECG - EKG Impression: SINUS TACHYCARDIA EKG Impression: LOW VOLTAGE IN FRONTAL LEADS Electronically Signed By: Ollie Xiao 11-Aug-2017 17:03:47
[2017-08-10] MEDS ORDERED: ONDANSETRON 4 MG/2 ML VIAL IVP PRN (04:36)
[2017-08-10] MEDS ORDERED: IOPAMIDOL (ISOVUE 370) 100 ML BTL IV ONE (04:40)
[2017-08-10 05:37] LABS: PLATELET COUNT 206 10^3/uL (150-400)
[2017-08-10] MEDS ORDERED: NS 1,000 ML IV SCH (05:45)
[2017-08-10 05:46] LABS: INR 1.12 (0.83-1.16); PROTIME(PATIENT) 14.6 SEC (12.0-15.0)
--- NOTE | 2017-08-10 08:06 | GHP ---
[f rep st] HISTORY AND PHYSICAL DATE OF ADMISSION: 08/10/2017 SOURCE: Patient able to provide history, is a fair historian. Her EMR was also reviewed from recent hospitalizations in May. Case discussed with ED provider. CHIEF COMPLAINT: Altered mental status and hypoxia. HISTORY OF PRESENT ILLNESS: This is a pleasant 56-year-old female with a past medical history signif icant for Takotsubo cardiomyopathy with resolution of her EF, moderate to severe MR, chronic pain on chronic narcotic therapy, hypertension, depression, anxiety, history of migraine headaches, who prese nts to the emergency department via EMS in the senior quality control technician after her roommate was unable to wake he r from sleep. The patient with history of chronic narcotic and benzo use. She reports that she rece ntly had run out of her medications for some time and just recently was able to refill her prescripti ons. The patient thinks that she was taking the recommended dosing as prescribed, but that she had n ot taken them in some time. Additionally, patient admits that she has been drinking more recently in the past week due to increased stressors and depressed mood. The patient recently had her antidepre ssant regimen changed during last hospitalization where her Effexor was discontinued. It previously was working quite well with her, but there was concern that it was contributing to her cardiomyopathy . The patient was transitioned to Lexapro, but states that this has not been helping and she has bee n quite depressed without any SI or HI. Patient adamantly denies that she was trying to intentionall y overdose at all. She denies any current plans to harm herself or anybody else. The patient also r ecently was put on a statin therapy since her discharge in May, but otherwise reports that there have no been no significant changes to her home medications since that last stay. The patient repor ts some chills, no fevers. She has a cough productive of some brown colored sputum. She denies any recent sick contacts. She has had her flu shot. She is unsure if she has received her Pneumovax. T he patient reports occasional shortness of breath, but denies anything acutely today. She denies any chest pain or palpitations. The patient denies any increase in lower extremity edema. She does not e that she has been having significantly declined oral intake in the past several weeks. En route, from patient's home to the emergency department, EMS gave the patient 0.4 mg of Narcan. Taran goodwin became increasingly responsive, but she subsequently developed nausea and vomiting that was unc ontrolled for approximately 30 minutes. Symptoms finally were controlled. The patient's mentation i mproved and plans were to discharge the patient from the emergency department. However, the patient' s oxygenation did drop down with exertion initially to the 80s and subsequently again to the 70s. Taran goodwin denied any chest pain, palpitations, and no worsened shortness of breath at that time, but does not normally wear any oxygen at home. REVIEW OF SYSTEMS: Significant only for acute neck pain and spasm posteriorly. Otherwise, remainder of review of systems is negative, except as noted above. ALLERGIES: NSAIDs and amoxicillin. HOME MEDICATIONS: As per EMR: Risperdal 4 mg p.o. at h.s., Oxy IR 30 mg p.o. q.8 hours p.r.n., venl afaxine was discontinued, lisinopril previously discontinued, lorazepam 1 mg p.o. daily p.r.n., Dilau did 4 mg p.o. q.8 hours, gabapentin 300 mg p.o. three times daily, Lexapro 20 mg p.o. daily, Coreg pr eviously discontinued, aspirin 81 mg p.o. daily. PAST MEDICAL HISTORY: Significant for Takotsubo cardiomyopathy with resolution of her decreased EF o n last transesophageal echo in May, moderate to severe MR, chronic pain on chronic narcotic therapy, depression, anxiety, PTSD, degenerative disk disease, hypertension, migraine headaches. PAST SURGICAL HISTORY: Significant for cholecystectomy, hernia repair, cardiac cath showing negative occlusive disease in 2017. FAMILY HISTORY: Negative for coronary artery disease, diabetes, alcohol dependence. SOCIAL HISTORY: Patient lives with a roommate. She does smoke approximately 1 pack per day for a to jen lifetime of 10 years. She is currently drinking 4 beers daily, she reports 12 ounce size. Marij uana use intermittently. CODE STATUS: Full. PHYSICAL EXAMINATION: VITAL SIGNS: Vitals upon arrival to the emergency department: Blood pressure 180/89, heart rate 127, respiratory rate 22, O2 saturation 91% on room air with a temperature of 36. 7. Vitals available at time of interview: Blood pressure 106/60, declined as low as 98/60, heart ra te 91, respiratory rate 17, O2 saturation 96% on 2 L by nasal cannula, temperature of 37.6. Per ED maribell amor, O2 sats on room air in the emergency department declined as low as 72%. GENERAL: No acute distress, pleasant, frail adult female, appears older than stated age. I did admit the patient on and at that time, it does appear that patient looks thinner and as though she has lost some weight. HEAD: Normocephalic, atraumatic. EYES: Extraocular muscles are intact. Pupils equal, rou nd, react to light bilaterally and symmetric. No scleral icterus or conjunctival injection. ENT: M ucous membranes appear slightly dry. No oropharyngeal erythema or exudates. NECK: Supple. Trachea midline. Posteriorly, the patient does have a small trigger point on the base of the left posterior neck and spasm. CV: Regular rate and rhythm. No murmurs, rubs, or gallops appreciated. Slightly distant heart sounds. RESPIRATORY: Unlabored breathing. The patient does have some fine crackles w hich are cleared with cough in the upper lung [place] posteriorly. She has diminished air movement bi basilarly, improved with prompting to take deep breaths. No wheezes or rhonchi. ABDOMEN: Positive bowel sounds, soft, nontender to palpation. No rebound, guarding, or masses appreciated. : No Fo pavan in place. No suprapubic tenderness to palpation. No CVA tenderness. EXTREMITIES: Patient with out any cyanosis, clubbing, or edema appreciated. Patient with 1+ pedal pulses bilaterally and symme tric. NEURO: Grossly nonfocal no facial drooping. Patient is awake, alert, and oriented x4. PSYCH : Patient's affect is depressed. She does become tearful during the interview. She denies any SI o r HI adamantly. Questions, thought process, and content are all appropriate at this time. LABORATORY STUDIES: WBCs on arrival 8.19, H and H 16.1 and 48.9, MCV of 97.8, platelet count is 292, neutrophil percent is 76, no bands. PT is 14.6, INR is 1.12, PTT is 25.5. D-dimer is 1.12. Sodium is 141, potassium 4.8 repeat is 5.3, chloride is 97, CO2 is 29, anion gap 15, BUN is 7, creati nine 0.9, GFR of greater than 60, glucose 125, calcium 10.1. Total bilirubin 0.3, total protein 8.3, albumin is 4.9. Repeated a.m. labs show total protein decreased to 5.9 and albumin 3.3. LFTs initi ally, ALT is 166, AST is 258, alkaline phosphatase is 158. Repeated AST is 121, ALT is 108, alkaline phosphatase is 102. UA, specific gravity of 1.008, pH is 6.0, 1+ protein, 1+ blood, otherwise negative. U-tox is positiv e for opiates, benzos, and marijuana. Salicylates negative. Acetaminophen negative. Alcohol level is negative. EKG, reviewed myself, showing sinus tachycardia in the 100s. QTc is 472. No acute ST changes. Chest x-ray, image reviewed myself, report is still pending without any acute cardiorespiratory drake es. CTA of the chest, image reviewed myself, preliminary report also reviewed is negative for PE, but kit wing bibasilar atelectasis. ASSESSMENT AND PLAN: Pleasant 56-year-old female with past medical history significant for chronic p ain on chronic narcotic therapy and benzodiazepines, history of takotsubo with moderate to severe scott ral regurgitation, who presents initially with altered mental status secondary to polypharmacy and un intentional overdose. Admitted for hypoxia. 1. Hypoxia, likely related to patient's unintentional overdose as well as atelectasis. Her mentatio n is significantly improved. She has received a dose of Narcan prior to arrival via emergency medica l services. Patient without any previous history of need for oxygen. Her CT is negative for any lucia dence of acute pulmonary embolus or pneumonia. Incentive spirometry to continue and we will titrate her oxygen down as tolerated. 2. Unintentional overdose of polypharmacy. Reviewed with the patient importance of taking medicatio ns as prescribed, but she is adamant that she did. Also reviewed increased risk for alcohol use. Sh e may consider decreasing her dosing and/or following up with her chronic pain specialist to further discuss alternative options. 3. Atelectasis. Incentive spirometry has been ordered. 4. Transaminitis. This could be secondary to some component of shock liver with her hypotension and hypoxia. Also, patient was recently started on a statin and so we will check a CK. She denies any myalgias. Also reviewed with the patient that her increased alcohol intake recently could also be co ntributing. Her previous chart notes hepatitis C in one of her diagnoses, but patient denies any kno wledge of this previously. I tried to look through her entire available [employer] record and there is no order for hepatitis panel, which has been added on for this morning's labs. 5. Hypotension. We will give patient a little bit of IV fluids. Her previous ejection fraction was normalized. We will monitor fluid status closely. 6. Nausea, vomiting are currently resolved following a dosing of Narcan contributing to likely some component of withdrawal. 7. Depression. Patient denies any suicidal ideation or homicidal ideation. She was previously reed sitioned from Effexor, which worked quite well for her, to Lexapro and patient has not had as much fraser ccess with managing her depressed mood. Continue patient's Risperdal and encouraged patient to follo w up with her psychiatrist to further evaluate any potential adjustments or revisions to her medicati on list. 8. Anxiety. Holding benzodiazepines secondary to patient's hypoxia. 9. Chronic pain. Holding any narcotics at this time until patient is discharged, but again reviewed with the patient encouraged her to follow up with her chronic pain specialist and consider holding o r cutting back on her medications and avoiding alcohol. 10. Moderate to severe mitral regurgitation. Monitor fluid status with IV fluids in process. Histo ry of takotsubo with resolved ejection fraction. The patient again reports that she is currently und er increasing stressors. 11. Neck pain due to spasm. K-pad. Supportive care. 12. Hypoalbuminemia. Dietary consultation. The patient reports a poor dietary intake in the last s everal weeks. 13. Tobacco abuse. Cessation encouraged. Nicotine patch has been ordered. 14. Marijuana use. Again, cessation and lifestyle changes recommended. 15. Fluid, electrolytes, nutrition. Normal saline for some gentle hydration. Electrolyte replaceme nt p.r.n. Diet as tolerated. 16. Prophylaxis. Sequential compression devices, anticoagulation. The patient should stay an addit ional day. 17. Code status is full. 18. Disposition. The patient admitted to observation on the medical floor at this time. If able to wean patient off her oxygen, possibility for discharge later today. Discussed with the patient vers us additional day stay. Encouraged patient to utilize her incentive spirometer aggressively and to m obilize in efforts to get her discharged shortly. /[id number]/MODL
[2017-08-10 08:09] LABS: CREATINE KINASE 170 IU/L (0-156)
[2017-08-10] MEDS: NICOTINE 21 MG/24 HR PATCH TD SCH (10:03)
[2017-08-10] MEDS: ENOXAPARIN 40 MG/0.4 ML SYR SC SCH (10:05)
[2017-08-10] MEDS ORDERED: PNEUMOCOCCAL 0.5ML VACCINE VIAL IM ONE (11:05)
[2017-08-10] MEDS ORDERED: LORazepam 1 MG TAB PO PRN (11:54)
--- NOTE | 2017-08-10 12:51 | HOSPPROG ---
Hospitalist Progress Note Assessment/Plan: 56-year-old with a history of chronic pain and continuous narcotic dependency is admitted with altered mental status. She admits to drinking 7 beers yesterday and resuming her narcotic medications which she had been off of for 7 days prior to admission. Her roommate found her unconscious difficult to arouse and brought her to the hospital. She responded quickly to Narcan. # unintentional narcotic overdose complicated by alcohol use and benzo use. She admits being followed by a pain clinic but will not give me the name of the pain clinic * Improved today but still hypoxic * Resume some of her pain medicines at a lower dose * She will need close follow-up with pain clinic. I will attempt to figure out which 1 it is and give them a note so the new it when on * Will continue to monitor, discharge will depend upon her oxygen sats normalizing prior. At least she needs to be 89% on room air # elevated LFTs, improved. Likely secondary to alcohol use and possible hypotension. * Follow up on hepatitis serology * I suspect these will improve over time # chronic pain with continuous narcotic use at risk for overdose given this hospitalization. Will decrease her medications upon discharge # takotsubo cardiomyopathy followed by [facility] # mitral valve disease Subjective: Patient new to me and chart reviewed. She is quite fearful of narcotic withdrawal given her reaction to Narcan last night. She neglected to tell me the name of her pain clinic but did review her medications with me. Objective: Vital Signs Temp Pulse Resp BP Pulse Ox 37.1 C 92 12 90/56 L 92 08/10/17 11:40 08/10/17 11:40 08/10/17 11:40 08/10/17 11:40 08/10/17 11:40 Laboratory Results 08/10/17 05:26 08/10/17 05:26 08/09/17 08/10/17 08/11/17 05:59 05:59 05:59 Intake Total 0 Balance 0 PT 14.6 SEC (12.0-15.0) 08/10/17 05:26 INR 1.12 (0.83-1.16) 08/10/17 05:26 - Physical Exam Constitutional: chronically ill appearing Eyes: PERRL Ears, Nose, Mouth, Throat: moist mucous membranes, hearing normal Cardiovascular: regular rate and rhythym Respiratory: no respiratory distress, reduced air movement Gastrointestinal: normoactive bowel sounds Genitourinary: no bladder fullness Skin: warm, normal color Neurologic: AAOx3 Psychiatric: interacting appropriately, not anxious ICD10 Worksheet Patient Problems: Problems Problem Status Onset Abdominal pain Acute Non-STEMI (non-ST elevated myocardial infarction) Acute Chest pain Acute Fatigue Acute Abnormal EKG Acute Narcotic overdose Acute Benzodiazepine overdose Acute Hypoxia Acute
[2017-08-10] MEDS: oxyCODONE IR 5 MG TAB PO SCH ×2 (12:56→14:23)
--- NOTE | 2017-08-10 14:07 | ASMTCMCOM ---
CM Note CM Note Notes: Chart reviewed. Patient admitted via ED for decreased LOC and hypoxia. She was difficult for her room mate to arouse and EMS was summoned She reportedly suffers from chronic pain and also admits to drinking heavily yesterday. She is still hypoxic. No therapies ordered. She was living independently with room mate. Likely to dc independent to home. CM available should needs arise. Date Signed: 08/10/2017 02:06 PM Electronically Signed By:Audrey Can RN
[2017-08-10] MEDS ORDERED: oxyCODONE IR 5 MG TAB PO PRN (15:00)
[2017-08-10] MEDS: GABAPENTIN 300 MG CAP PO SCH ×2 (15:38→20:57)
[2017-08-10] MEDS ORDERED: risperiDONE 2 MG TAB PO SCH (21:00)
[2017-08-10] MEDS ORDERED: RISPERIDONE 4 MG PO SCH (21:00)
[2017-08-10] MEDS ORDERED: HYDROmorphONE/DILAUDID 4 MG TAB PO SCH (21:00)
[2017-08-10] MEDS ORDERED: HYDROMORPHONE HCL 8 MG PO SCH (21:00)
[2017-08-11 03:46] VITALS: PULSE 77; TEMP 98.4
[2017-08-11 04:10] LABS: HEPATITIS B SURFACE ANTIGEN NEGATIVE (NEGATIVE)
[2017-08-11 04:16] LABS: HEPATITIS A ANTIBODY IGM (BCH) NEGATIVE (NEGATIVE); HEPATITIS B CORE AB IGM NEGATIVE (NEGATIVE)
[2017-08-11 04:28] LABS: HEPATITIS C ANTIBODY TOTAL NEGATIVE (NEGATIVE)
[2017-08-11 05:28] LABS: PLATELET COUNT 192 10^3/uL (150-400)
[2017-08-11 07:59] VITALS: BP 134/89; O2SAT 93
[2017-08-11] MEDS ORDERED: NON-FORMULARY NEW DRUG (Escitalopram Oxalate [Lexapro] 20 MG) PO SCH (09:00)
[2017-08-11] MEDS ORDERED: ESCITALOPRAM OXALATE 10 MG TAB PO SCH (09:00)
[2017-08-11] MEDS ORDERED: LISINOPRIL 5 MG TAB PO SCH (09:00)
[2017-08-11] MEDS ORDERED: CARVEDILOL 3.125 MG TAB PO SCH (09:00)
[2017-08-11] MEDS ORDERED: ASPIRIN EC 81 MG TAB PO SCH (09:00)
[2017-08-11] MEDS: ENOXAPARIN 40 MG/0.4 ML SYR SC SCH (09:02)
[2017-08-11] MEDS: GABAPENTIN 300 MG CAP PO SCH (09:02)
[2017-08-11] MEDS: NICOTINE 21 MG/24 HR PATCH TD SCH (09:03)
[2017-08-11 10:37] VITALS: RESP 19
--- NOTE | 2017-08-11 11:03 | GDS ---
[f rep st] DISCHARGE SUMMARY DIAGNOSES: 1. Opioid overdose, unintentional. 2. Chronic pain with continuous opioid dependence. 3. Acute respiratory failure secondary to above. 4. Depression, anxiety. PROCEDURES DONE: Chest and thoracic CT angiogram: Negative for PE. HOSPITAL COURSE: The patient is a 56-year-old with chronic pain with continuous opioid dependence. She is followed by a local pain clinic. She would not give me information as to who that was. She s aid that she ran out of her short-acting pain medications about a week ago, but was taking her long-a cting. The night prior to admission, she drank 7 beers, started taking her pain medications again, a nd her friend found her unconscious and difficult to arouse, [facility] On arrival, she responded well to Narcan and woke up. However, her respiratory rate was low and she was hypoxic. She was admitted for monitoring, and over the course of her hospitalization, her o xygen sats returned to normal. She looks comfortable on the day of discharge, despite cutting down h er oxycodone slightly. Additionally, she had elevated LFTs on the day of admission. I suspect this may have been from acute alcohol intoxication and possibly for some hypotension associated with her o pioid overdose. However, those have been normalizing throughout her stay and her hepatitis serologie s were negative. CONDITION ON DISCHARGE: Good. She is saturating over 90% on room air. Her vital signs are stable. She is comfortable, alert and oriented. Denies any suicidal ideation. This appears to be an uninte ntional opioid overdose. FOLLOWUP INSTRUCTIONS: She needs to follow up with her pain clinic and her primary care provider. I will not prescribe any medications on discharge. /[id number]/MODL
== END 2017-08-11 11:19 | disposition home or self-care (01) ==
LOC: EDUNIT# → F3N 05:16
PROVIDERS: ADMIT Family Medicine; ATTEND Family Medicine
DX: F11.120 Opioid abuse with intoxication, uncomplicated (principal); T40.2X5A Adverse effect of other opioids, initial encounter; E86.9 Volume depletion, unspecified; G89.29 Other chronic pain; J96.01 Acute respiratory failure with hypoxia; F41.8 Other specified anxiety disorders; R41.82 Altered mental status, unspecified; I34.0 Nonrheumatic mitral (valve) insufficiency; F17.200 Nicotine dependence, unspecified, uncomplicated; K44.9 Diaphragmatic hernia without obstruction or gangrene; J98.11 Atelectasis; K76.0 Fatty (change of) liver, not elsewhere classified; Z88.1 Allergy status to other antibiotic agents; Z23 Encounter for immunization
CPT/HCPCS: 71045; 71275; 90471; 93005; G0378; 80305; 96374; G0009; G0472; G0480; J1650; J2405; Q9967

== ENCOUNTER 2018-03-07 16:53 | Emergency (ER) | payer MEDICAID ==
[2018-03-07] MEDS ORDERED: fentaNYL 100 MCG/2 ML INJ ONE (18:43)
[2018-03-07] MEDS ORDERED: fentaNYL 100 MCG/2 ML INJ IVP ONE ×2 (18:46→19:43)
[2018-03-07 19:05] VITALS: BP 104/73
--- NOTE | 2018-03-07 20:02 | EDPHY ---
H & P Stated Complaint: fell in the [employer], right wrist and nose injury Time Seen by Provider: 03/07/18 17:44 HPI/ROS: Chief complaint: Fall with right wrist injury History of present illness: This is a 57-year-old female who presents to the emergency department for evaluation after sustaining a fall and injuring her right wrist. She states she was getting water in her kitchen when she misstepped, lost her balance and fell. She landed onto her right wrist. Since then there has been pain and swelling. She cannot move it. She also believes she struck her nose, there was some bleeding that resolved on its own. She denies other associated signs or symptoms including no open wounds, no paresthesias or abnormal coolness to the right hands. No report of trauma to other parts of the body including the rest of the head, neck, back, chest, abdomen or other extremities. She distinctly remembers the event, there were no preceding events such as dizziness or loss of consciousness, she merely misstepped, lost her balance while getting water and fell. Review of systems: A 10 point review of systems was obtained and other than described above was negative - Medical/Surgical History Hx Asthma: Yes Hx Chronic Respiratory Disease: No Hx Diabetes: No Hx Cardiac Disease: No Hx Renal Disease: No Hx Cirrhosis: No Hx Alcoholism: No Hx HIV/AIDS: No Hx Splenectomy or Spleen Trauma: No Other PMH: MIGRAINES, OSTEO AND RHEUMATOID ARTHRITIS, DEGENERATIVE JOINT DISEASE , DEGENERATIVE DISC DISEASE, CERVICAL BULGING DISC, COGNITIVE IMPAIRMENT, SEIZURES, PTSD - Social History Smoking Status: Current every day smoker - Physical Exam Exam: General Appearance: Alert, nontoxic Eyes: PERRLA Respiratory: Lungs clear to auscultation bilaterally Cardiac: Regular rate and rhythm. Neurological: Alert. Strength and sensation intact and symmetrical. Sensation is intact distal to the right wrist injury. Skin: No open wounds noted. Musculoskeletal: The head is nontender. The spine is nontender without crepitus, bony deformity or step-off. Obvious dorsal deformity to the right wrist. She cannot move it. She is able to move the digits of the right hand although this causes pain. The rest of the right upper extremity is unremarkable. The other extremities are unremarkable. She is ambulating well. Constitutional: Initial Vital Signs Temperature (C) 36.6 C 03/07/18 16:55 Heart Rate 82 03/07/18 16:55 Respiratory Rate 18 03/07/18 16:55 Blood Pressure 82/57 L 03/07/18 16:55 O2 Sat (%) 90 L 03/07/18 16:55 O2 Delivery Mode Room Air Allergies/Adverse Reactions: NSAIDS (Non-Steroidal Anti-Inflamma Allergy (Mild, Verified 03/07/18 16:54) GI discomfort amoxicillin Allergy (Verified 03/07/18 16:54) Home Medications: Medication Instructions Recorded Gabapentin [Neurontin 300 MG (*)] 300 mg PO TID 06/01/17 LORazepam [Ativan (*)] 1 mg PO DAILY PRN 06/02/17 risperiDONE [Risperidone] 4 mg PO HS 06/02/17 Aspirin EC [Aspirin EC 81 mg (*)] 81 mg PO DAILY tab 06/03/17 Escitalopram Oxalate [Lexapro] 20 mg PO DAILY 06/27/17 Carvedilol [Coreg (*)] 3.125 mg PO DAILY 08/10/17 Lisinopril [Zestril 5 mg (*)] 5 mg PO DAILY 08/10/17 Methylphenidate HCl [Ritalin 5mg 5 mg PO BID@08,14 08/10/17 (*)] oxyCODONE IR [Oxycodone Ir (*)] 15 mg PO Q8H PRN #1 tab 08/11/17 Hydrocodone/APAP 5/325 [[place] 1 tab PO Q6H #10 tab 03/07/18 5/325 (*)] Medical Decision Making - Diagnostics Imaging Results: Imaging Impressions Wrist X-Ray 03/07/18 16:57 Impression: 1. Acute impacted comminuted intra-articular distal right radius fracture with dorsal angulation 30 degrees. 2. Ulnar styloid acute fracture. 3. Severe osteoarthritis with probable old fracture deformities of the right scaphoid and trapezium. Imaging: I viewed and interpreted images myself Procedures: Verbal consent was obtained place a hematoma block. The skin was prepped in usual fashion. 10 cc of 1% lidocaine without epinephrine was placed. Patient tolerated the procedure well. Moderate anesthesia was obtained. No complications noted. Procedure: Distal radius fracture reduction The distal radius was reduced in the usual fashion without complications. Post reduction the patient's neurovascular exam is normal. Post reduction x-ray demonstrates reduction of the joint to the anatomic position. The procedure was performed by myself. Procedure: Splint placement. A sugar-tong splint was applied. She was further placed in a sling. After application of the splint I returned and re-examined the patient. The splint was adequately immobilizing the joint and distal to the splint the patient's circulation and sensation was intact. Differential Diagnosis: Included but not limited to contusion, sprain or strain, bony fracture, joint dislocation - Data Points Medications Given: Discontinued Medications Hydrocodone Bitart/Acetaminophen ([place] 5/325mg Prepack#6) 1 btl TAKEHOME EDNOW ONE Stop: 03/07/18 20:09 Last Admin: 03/07/18 20:13 Dose: 1 btl Fentanyl (Sublimaze) 100 mcg IVP EDNOW ONE Stop: 03/07/18 18:47 Last Admin: 03/07/18 19:23 Dose: 100 mcg Fentanyl (Sublimaze) 50 mcg IVP EDNOW ONE Stop: 03/07/18 19:44 Last Admin: 03/07/18 20:00 Dose: 50 mcg Departure - Departure Disposition: Home, Routine, Self-Care Clinical Impression: Wrist fracture, right Qualifiers: Encounter type: initial encounter Fracture type: closed Qualified Code(s): S62.101A - Fracture of unspecified carpal bone, right wrist, initial encounter for closed fracture Condition: Good Instructions: Hydrocodone/Acetaminophen (By mouth), Wrist Fracture in Adults ( ED), Splint Care (ED) Additional Instructions: Follow-up with orthopedics this week for recheck You have been prescribed [[place]] for pain. [[place]] contains Tylenol, do not take extra Tylenol/acetaminophen/Apap with it. It is sedating. If symptoms worsen or new symptoms develop return to the emergency room for recheck Referrals: NONE *PRIMARY CARE P,. [Primary Care Provider] - As per Instructions Keenan Adams MD [Medical Doctor] - As per Instructions Prescriptions: Hydrocodone/APAP 5/325 [[place] 5/325 (*)] 1 tab PO Q6H #10 tab
[2018-03-07] MEDS ORDERED: HYDROCOD/APAP 5/325 PREPACK#6 BTL TAKEHOME ONE (20:08)
== END 2018-03-07 20:18 | disposition home or self-care (01) ==
PROC: 0PSHXZZ Reposition Right Radius, External Approach (ICD-10-PCS; principal; 2018-03-07)
DX: S52.571A Other intraarticular fracture of lower end of right radius, initial encounter for closed fracture (principal); S52.611A Displaced fracture of right ulna styloid process, initial encounter for closed fracture; W01.0XXA Fall on same level from slipping, tripping and stumbling without subsequent striking against object, initial encounter; Y92.000 Kitchen of unspecified non-institutional (private) residence as the place of occurrence of the external cause; Y93.89 Activity, other specified; M19.031 Primary osteoarthritis, right wrist
CPT/HCPCS: 96374; A4565; J3010

== ENCOUNTER 2018-03-08 14:39 | Emergency (ER) | payer MEDICAID ==
--- NOTE | 2018-03-08 15:10 | EDPHY ---
H & P Stated Complaint: Inj to R foot from fall Time Seen by Provider: 03/08/18 15:10 HPI/ROS: HPI CHIEF COMPLAINT: Trip and fall, right foot pain. HISTORY OF PRESENT ILLNESS: 57-year-old female, history of migraines, seizures , PTSD, cognitive impairment recently seen in the emergency room last night for a wrist fracture. Patient presents back to the emergency room with right foot pain after she tripped and fell today. Has pain over the top of her right foot. Denies any other areas of injury. Past Medical History: PTSD, seizures, cognitive impairment, hypertension Past Surgical History: No recent surgery Social History: Denies drugs alcohol tobacco. Family History: Noncontributory ROS REVIEW OF SYSTEMS: 10 Systems were reviewed and negative with the exception of the elements mentioned in the history of present illness. Exam Constitutional triage nursing summary reviewed, vital signs reviewed, awake/ alert. Vital signs noted be hypotensive. Eyes normal conjunctivae and sclera, EOMI, PERRLA. HENT normal inspection, atraumatic, moist mucus membranes, no epistaxis, neck supple/ no meningismus, no raccoon eyes. Respiratory clear to auscultation bilaterally, normal breath sounds, no respiratory distress, no wheezing. Cardiovascular rate normal, regular rhythm, no murmur, no edema, distal pulses normal. Gastrointestinal soft, non-tender, no rebound, no guarding, normal bowel sounds, no distension, no pulsatile mass. Genitourinary no CVA tenderness. Musculoskeletal no midline vertebral tenderness, full range of motion, no calf swelling, no tenderness of extremities, no meningismus, good pulses, neurovascularly intact. Skin pink, warm, & dry, no rash, skin atraumatic. Neurologic awake, alert and oriented x 3, AAOx3, moves all 4 extremities equally, motor intact, sensory intact, CN II-XII intact, normal cerebellar, normal vision, normal speech. Psychiatric normal mood/affect. Heme/Lymph/Immune no lymphadenopathy. Differential Diagnosis: Includes but is not limited to in a particular order mechanical trip and fall, foot contusion, foot sprain. Foot fracture. Medical Decision Making: Plan for this patient repeat blood pressure, x-ray right foot and re-evaluate. Re-evaluation: Source: Patient - Personal History Current Tetanus Diphtheria and Acellular Pertussis (TDAP): Yes - Medical/Surgical History Hx Asthma: Yes Hx Chronic Respiratory Disease: No Hx Diabetes: No Hx Cardiac Disease: No Hx Renal Disease: No Hx Cirrhosis: No Hx Alcoholism: No Hx HIV/AIDS: No Hx Splenectomy or Spleen Trauma: No Other PMH: MIGRAINES, OSTEO AND RHEUMATOID ARTHRITIS, DEGENERATIVE JOINT DISEASE , DEGENERATIVE DISC DISEASE, CERVICAL BULGING DISC, COGNITIVE IMPAIRMENT, SEIZURES, PTSD - Social History Smoking Status: Current every day smoker Constitutional: Initial Vital Signs Temperature (C) 36.9 C 03/08/18 14:40 Heart Rate 78 03/08/18 14:40 Respiratory Rate 16 03/08/18 14:40 Blood Pressure 138/82 H 03/08/18 14:40 O2 Sat (%) 95 03/08/18 14:40 O2 Delivery Mode Room Air Allergies/Adverse Reactions: NSAIDS (Non-Steroidal Anti-Inflamma Allergy (Mild, Verified 03/08/18 14:40) GI discomfort amoxicillin Allergy (Verified 03/08/18 14:40) Home Medications: Medication Instructions Recorded Gabapentin [Neurontin 300 MG (*)] 300 mg PO TID 06/01/17 LORazepam [Ativan (*)] 1 mg PO DAILY PRN 06/02/17 risperiDONE [Risperidone] 4 mg PO HS 06/02/17 Aspirin EC [Aspirin EC 81 mg (*)] 81 mg PO DAILY tab 06/03/17 Escitalopram Oxalate [Lexapro] 20 mg PO DAILY 06/27/17 Carvedilol [Coreg (*)] 3.125 mg PO DAILY 08/10/17 Lisinopril [Zestril 5 mg (*)] 5 mg PO DAILY 08/10/17 Methylphenidate HCl [Ritalin 5mg 5 mg PO BID@08,14 08/10/17 (*)] oxyCODONE IR [Oxycodone Ir (*)] 15 mg PO Q8H PRN #1 tab 08/11/17 Hydrocodone/APAP 5/325 [[place] 1 tab PO Q6H #10 tab 03/07/18 5/325 (*)] Departure - Departure Disposition: Home, Routine, Self-Care Clinical Impression: Foot sprain Qualifiers: Encounter type: initial encounter Laterality: right Qualified Code(s): S93.601A - Unspecified sprain of right foot, initial encounter Condition: Good Instructions: Foot Sprain (ED) Additional Instructions: 1. Recommend ice. 2. Recommend anti-inflammatory pain medicine 3. Follow closely her blood pressure 4. Get with your primary care doctor discuss your blood pressure medications and your blood pressure 5. Return to the emergency room if you have worsening symptoms questions or concerns. Referrals: NONE *PRIMARY CARE P,. [Primary Care Provider] - As per Instructions
[2018-03-08 16:25] VITALS: BP 135/96
== END 2018-03-08 16:24 | disposition home or self-care (01) ==
DX: S93.601A Unspecified sprain of right foot, initial encounter (principal); W01.0XXA Fall on same level from slipping, tripping and stumbling without subsequent striking against object, initial encounter; M06.9 Rheumatoid arthritis, unspecified; F43.10 Post-traumatic stress disorder, unspecified; G31.84 Mild cognitive impairment of uncertain or unknown etiology

== ENCOUNTER 2018-04-11 10:37 | Emergency (ER) | payer MEDICAID ==
--- NOTE | 2018-04-11 10:40 | EDPHY ---
HPI/HX/ROS/PE/MDM Narrative: CHIEF COMPLAINT: Possible drug overdose, AMS HPI: The patient is a 57 y/o female arriving via EMS from home with altered mentation following possible drug overdose. Per EMS, her roommate came home and found the patient acting inappropriately similar to prior overdoses and administered two doses of Narcan. It's not clear this changed patient's presentation at all, though there is some report of a brief episode of shaking prior to EMS arrival. EMS did not observe any signs of trauma. They note she will sometimes follow commands and answer questions, though not clearly and becomes tangential in her speech. Prehospital BGL 136. She has multiple bottles of Dilaudid and gabapentin in a bag of prescriptions that was brought with patient. Prior records show she is on chronic narcotic therapy for chronic pain and was admitted here in July for an unintentional narcotic overdose. REVIEW OF SYSTEMS: Unable to obtain due to AMS. PMH: Takotsubo cardiomyopathy, moderate-severe MR, chronic pain on chronic narcotic therapy, depression, anxiety, PTSD, degenerative disk disease, hypertension, migraine headaches, cholecystectomy, hernia repair, cardiac cath negative for occlusive disease in 2017. SOCIAL HISTORY: Lives with roommate. Smoker. Uses alcohol daily. Prior medical records reviewed including admission 08/10/17 for unintentional overdose. PHYSICAL EXAM: General:Patient is alert, in no acute distress. ENT:Eyes are normal to inspection. Pupils midposition. ENT inspection normal. Neck: Normal inspection. Full range of motion. Respiratory:No respiratory distress. Breath sounds normal bilaterally. Cardiovascular: Regular rate and rhythm. Strong peripheral pulses. Normal cap refill. Abdomen:The abdomen is nontender to palpation. There are no peritoneal signs. Back: Normal to inspection. No tenderness to palpation. Skin: Normal color. No rash. Warm and dry. Extremities: Normal appearance. Full range of motion. Neuro: Oriented x1. Following some commands. Mumbling speech. Moving all extremities. ED Course: This is a 57 y/o female on continuous narcotic therapy who presents after she was found altered by her roommate this morning. Narcan administered by her roommate did not seem to improve condition. Patient is following some commands and is mumbling. Pupils are midposition. No signs of trauma. Plan for IV, labs including EtOH level, tox screen, and observation. Patient had a large bowel movement in the bed. Head CT: artifact due to patient movement caused difficult interpretation. Labs are unremarkable. Tox screen shows non-negative opiates, benzodiazepines, and marijuana. 1300: Patient is awake and walking around her room making phone calls. Reassessed patient. She is walking around without issue and would like to be discharged home. She cannot tell me any information regarding what brought her to the ED today. She is refusing any further investigation of this here. She will be discharged with standard care and follow up instructions. Return precautions discussed. I do not think she meets criteria for a hold. I suspect this represents polysubstance abuse. - Data Points Imaging Results: Imaging Impressions Head CT 04/11/18 10:41 Impression: 1. Motion artifact versus 2 small focal areas of left supratentorial edema. Consider repeat exam when the patient is more cooperative. 2. Artifact versus mass in the left cavernous sinus/parasellar region 3. Otherwise negative. Results called to Dr. Amanuel Anthony at 11:29 AM General information for patients regarding this examination can be found at [email or web address]. If you have questions or comments about this report, please contact me at [phone] (hospital) or [phone] (cell). Imaging: Discussed imaging studies w/ senior merchandiser Radiologist, I viewed and interpreted images myself Laboratory Results: Laboratory Results 04/11/18 10:38 04/11/18 10:38 04/11/18 04/11/18 04/11/18 12:20 10:38 10:38 WBC 5.32 10^3/uL 10^3/uL (3.80-9.50) RBC 4.72 10^6/uL 10^6/uL (4.18-5.33) Hgb 14.7 g/dL g/dL (12.6-16.3) Hct 44.2 % % (38.0-47.0) MCV 93.6 fL fL (81.5-99.8) MCH 31.1 pg pg (27.9-34.1) MCHC 33.3 g/dL g/dL (32.4-36.7) RDW 12.8 % % (11.5-15.2) Plt Count 256 10^3/uL 10^3/uL (150-400) MPV 10.0 fL fL (8.7-11.7) Neut % (Auto) 48.5 % % (39.3-74.2) Lymph % (Auto) 42.1 % % (15.0-45.0) [place] % (Auto) 9.0 % % (4.5-13.0) Eos % (Auto) 0.2 % L % (0.6-7.6) Baso % (Auto) 0.0 % L % (0.3-1.7) Nucleat RBC Rel Count 0.0 % % (0.0-0.2) Absolute Neuts (auto) 2.58 10^3/uL 10^3/uL (1.70-6.50) Absolute Lymphs (auto) 2.24 10^3/uL 10^3/uL (1.00-3.00) Absolute Monos (auto) 0.48 10^3/uL 10^3/uL (0.30-0.80) Absolute Eos (auto) 0.01 10^3/uL L 10^3/uL (0.03-0.40) Absolute Basos (auto) 0.00 10^3/uL L 10^3/uL (0.02-0.10) Absolute Nucleated RBC 0.00 10^3/uL 10^3/uL (0-0.01) Immature Gran % 0.2 % % (0.0-1.1) Immature Gran # 0.01 10^3/uL 10^3/uL (0.00-0.10) Sodium 144 mEq/L mEq/L (135-145) Potassium 4.0 mEq/L mEq/L (3.3-5.0) Chloride 108 mEq/L mEq/L (97-110) Carbon Dioxide 27 mEq/l mEq/l (22-31) Anion Gap 9 mEq/L mEq/L (6-14) BUN 21 mg/dL mg/dL (7-23) Creatinine 0.7 mg/dL mg/dL (0.6-1.0) Estimated GFR > 60 Glucose 95 mg/dL mg/dL (70-100) Calcium 10.2 mg/dL mg/dL (8.5-10.4) Urine Opiates Screen NON-NEGATIVE H (NEGATIVE) Urine Barbiturates NEGATIVE (NEGATIVE) Ur Phencyclidine Scrn NEGATIVE (NEGATIVE) Ur Amphetamine Screen NEGATIVE (NEGATIVE) U Benzodiazepines Scrn NON-NEGATIVE H (NEGATIVE) Urine Cocaine Screen NEGATIVE (NEGATIVE) U Marijuana (THC) Screen NON-NEGATIVE H (NEGATIVE) Ethyl Alcohol < 10 mg/dL mg/dL (0-10) General Time Seen by Provider: 04/11/18 10:37 Initial Vital Signs: Initial Vital Signs Temperature (C) 36.5 C 04/11/18 10:41 Heart Rate 68 04/11/18 10:41 Respiratory Rate 16 04/11/18 10:41 Blood Pressure 104/81 H 04/11/18 10:41 O2 Sat (%) 93 04/11/18 10:41 O2 Delivery Mode Room Air Allergies/Adverse Reactions: NSAIDS (Non-Steroidal Anti-Inflamma Allergy (Mild, Verified 03/08/18 14:40) GI discomfort amoxicillin Allergy (Verified 03/08/18 14:40) Home Medications: Medication Instructions Recorded Gabapentin [Neurontin 300 MG (*)] 300 mg PO TID 06/01/17 LORazepam [Ativan (*)] 1 mg PO DAILY PRN 06/02/17 risperiDONE [Risperidone] 4 mg PO HS 06/02/17 Aspirin EC [Aspirin EC 81 mg (*)] 81 mg PO DAILY tab 06/03/17 Escitalopram Oxalate [Lexapro] 20 mg PO DAILY 06/27/17 Carvedilol [Coreg (*)] 3.125 mg PO DAILY 08/10/17 Lisinopril [Zestril 5 mg (*)] 5 mg PO DAILY 08/10/17 Methylphenidate HCl [Ritalin 5mg 5 mg PO BID@08,14 08/10/17 (*)] oxyCODONE IR [Oxycodone Ir (*)] 15 mg PO Q8H PRN #1 tab 08/11/17 Hydrocodone/APAP 5/325 [[place] 1 tab PO Q6H #10 tab 03/07/18 5/325 (*)] Departure - Departure Disposition: Home, Routine, Self-Care Clinical Impression: Altered mental status Qualifiers: Altered mental status type: unspecified Qualified Code(s): R41.82 - Altered mental status, unspecified Condition: Good Instructions: Altered Mental Status (ED) Additional Instructions: Follow up with your primary care provider for unimproved symptoms over the next 1-2 days. Return to the ED for worsening of condition. Referrals: Ayleen Moyer MD [Primary Care Provider] - As per Instructions Report Scribed for: Amanuel Anthony Report Scribed by: Syeda Law Date of Report: 04/11/18 Time of Report: 10:40 Physician Review and Approval Statement: Portions of this note were transcribed by an ED scribe. I personally performed the history, physical exam, and medical decision making; and confirm the accuracy of the information in the transcribed note.
[2018-04-11 10:50] LABS: PLATELET COUNT 256 10^3/uL (150-400)
[2018-04-11 13:26] VITALS: BP 100/49
--- NOTE | 2018-04-11 18:56 | ASMTCMCOM ---
CM Note CM Note Notes: Spoke w/pt about her possible unintentional narcotic OD and re: receiving Narcan by her roommate and she seemed surprised and confused. Pt doesn't think she took too many of her Dilaudid and/or Gabapentin; pt states "I think I just fell asleep." Pt was recently admitted in Jul 2017 for an unintentional narcotic OD. Pt states she is seen at a pain mgmt clinic in [place] and is also followed by a therapist in [place], where she used to live. Pt offered to have [facility] Sales Office Administrator, Yaron Clifton ([phone]) come and visit her in the ED but pt politely declined. Pt states she wants to go home and is not interested in any further conversation or resources. Pt plans on calling her roommate who will then call [facility] to pick her up. CM available for further assistance. Date Signed: 04/11/2018 06:56 PM Electronically Signed By:Kirstie Gan RN
== END 2018-04-11 14:01 | disposition home or self-care (01) ==
LOC: EDUNIT#
DX: R41.82 Altered mental status, unspecified (principal)
CPT/HCPCS: 80305; G0480

== ENCOUNTER → 2018-12-10 | Outpatient (CLI) | payer MEDICAID | LOC: FIMAGING 10:30 ==